=== PATIENT | female | born 1960 | race Caucasian/White ===

== ENCOUNTER 2017-12-20 00:44 | Emergency (ER) | payer MEDICARE, MEDICAID ==
[~2017-12-20] VITALS: Ht 165.1 cm; Wt 56.7 kg
[2017-12-20 00:57] VITALS: BP 97/58
== END 2017-12-20 01:18 | disposition home or self-care (01) ==
LOC: ER 00:46
DX: F41.9 Anxiety disorder, unspecified (principal); G89.4 Chronic pain syndrome; Z76.5 Malingerer [conscious simulation]; Z88.8 Allergy status to other drugs, medicaments and biological substances
CPT/HCPCS: 99284; A4606; Z7610

== ENCOUNTER 2017-12-26 23:27 | Emergency (ER) | payer MEDICARE, MEDICAID ==
[~2017-12-26] VITALS: Ht 165.1 cm; Wt 52.2 kg
[2017-12-26 23:35] VITALS: BP 134/78
--- NOTE | 2017-12-26 23:44 | NUR ---
PT WAS DISCHARGED BY MD SHEARER AND PT LEFT WITHOUT PAPERWORK
== END 2017-12-26 23:47 | disposition home or self-care (01) ==
LOC: ER 23:29
DX: Z76.5 Malingerer [conscious simulation] (principal); F19.129 Other psychoactive substance abuse with intoxication, unspecified; F41.9 Anxiety disorder, unspecified; G89.4 Chronic pain syndrome; Z88.8 Allergy status to other drugs, medicaments and biological substances
CPT/HCPCS: A4606; Z7610

== ENCOUNTER 2020-05-01 23:50 | Emergency (ER) | payer MEDICARE, OTHER ==
[~2020-05-01] VITALS: Ht 165.1 cm; Wt 62.6 kg
[2020-05-01 23:54] VITALS: BP 101/54
[2020-05-02] MEDS ORDERED: KETOROLAC TROMETHAMINE INJ 30 MG/ML VIAL ONE (00:01)
[2020-05-02] MEDS: KETOROLAC TROMETHAMINE INJ 60 MG/2 ML VIAL IM ONE ×2 (00:02→00:08)
[2020-05-02] MEDS ORDERED: oxyCODONE/APAP (5/325 MG) 1 UDTAB TABLET ONE (00:05)
[2020-05-02] MEDS ORDERED: oxyCODONE/APAP (5/325 MG) 1 UDTAB TABLET PO ONE (00:30)
== END 2020-05-02 00:10 | disposition home or self-care (01) ==
LOC: ER 23:50
DX: K02.9 Dental caries, unspecified (principal); K08.89 Other specified disorders of teeth and supporting structures; F41.9 Anxiety disorder, unspecified; G89.4 Chronic pain syndrome; Z88.8 Allergy status to other drugs, medicaments and biological substances
CPT/HCPCS: J1885

== ENCOUNTER 2020-05-02 10:37 | Emergency (ER) | payer MEDICARE, OTHER ==
[~2020-05-02] VITALS: Ht 165.1 cm; Wt 62.6 kg
[2020-05-02 10:43] VITALS: BP 113/62
[2020-05-02] MEDS ORDERED: HYDROCODONE/APAP 5/325MG TABLET ONE (10:58)
[2020-05-02] MEDS: HYDROCODONE/APAP 5/325MG TABLET PO ONE (11:20)
--- NOTE | 2020-05-02 11:24 | NUR ---
Patient given written and verbal discharge instructions. Patient verbalizes understanding of instructions. Patient is ambulatory with steady gait. Refuses offer of alf placement. Patient given list of available shelters in surrounding area. Patient in proper clothing upon discharge. name band removed. All belongings with the patient.
== END 2020-05-02 11:33 | disposition home or self-care (01) ==
LOC: ER 10:43
DX: K08.89 Other specified disorders of teeth and supporting structures (principal); Z76.5 Malingerer [conscious simulation]; F41.9 Anxiety disorder, unspecified; G89.4 Chronic pain syndrome; Z88.8 Allergy status to other drugs, medicaments and biological substances; Z60.2 Problems related to living alone; Z59.0 Homelessness

== ENCOUNTER 2020-05-03 04:48 | Emergency (ER) | payer MEDICARE, OTHER ==
[~2020-05-03] VITALS: Ht 165.1 cm; Wt 62.6 kg
[2020-05-03 04:51] VITALS: BP 110/90
--- NOTE | 2020-05-03 05:00 | NUR ---
Patient eloped from facility. ER MD notified.
--- NOTE | 2020-05-03 06:01 | NUR ---
PT CAME BACK AND REQUESTING TO BE SEEN BY ER MD. PT AMBULATORY TO ER BED 7. AWAITING ER MD MAHMOOD.
[2020-05-03] MEDS ORDERED: oxyCODONE/APAP (5/325 MG) 1 UDTAB TABLET PO ONE (07:00)
[2020-05-03] MEDS ORDERED: oxyCODONE/APAP (5/325 MG) 1 UDTAB TABLET ONE (07:02)
[2020-05-03] MEDS ORDERED: CEFTRIAXONE 1 G VIAL ONE (08:20)
[2020-05-03] MEDS ORDERED: LIDOCAINE /MPF 1% VIAL 5 ML VIAL ONE (08:20)
[2020-05-03] MEDS ORDERED: AZITHROMYCIN 250 MG TABLET ONE (08:21)
[2020-05-03] MEDS ORDERED: CEFTRIAXONE 1GM BAG (ER ONLY) 1 GM/50 ML PIGGYBACK IV ONE (08:30)
[2020-05-03] MEDS ORDERED: AZITHROMYCIN 250 MG TABLET PO ONE (08:30)
--- NOTE | 2020-05-03 08:40 | NUR ---
Patient discharged to home in stable condition. Written and verbal after care instructions given. Patient verbalizes understanding of instruction.
== END 2020-05-03 08:40 | disposition home or self-care (01) ==
LOC: ER 04:50
DX: K02.9 Dental caries, unspecified (principal); F41.9 Anxiety disorder, unspecified; G89.4 Chronic pain syndrome; Z88.8 Allergy status to other drugs, medicaments and biological substances; Z60.2 Problems related to living alone; Z59.0 Homelessness
CPT/HCPCS: 96372; 99283; A6403; J0696; J3490

== ENCOUNTER 2020-05-05 10:33 | Inpatient (IN) | payer MEDICARE, OTHER ==
[~2020-05-05] VITALS: Ht 165.1 cm; Wt 60.3 kg
--- NOTE | 2020-05-05 10:41 | NUR ---
carlito, "i feel sick in the inside whenever i am around with my boyfriend". On room air, breathing evenly and unlabored. connected to the monitor and pulse ox. kept comfortable, will continue to monitor accordingly.
--- NOTE | 2020-05-05 10:50 | NUR ---
er phleb at bedside for blood draw.
[2020-05-05 11:07] LABS: BASOPHILS % (AUTO) 0.7 % (0.0-2.0); EOSINOPHILS % (AUTO) 0.2 % (0.0-6.0); HEMATOCRIT 32 % (33-45); HEMOGLOBIN 10.6 g/dL (11.5-14.8); LYMPHOCYTES # (AUTO) 1.9 /CMM (0.8-4.8); LYMPHOCYTES % (AUTO) 42.5 % (20.0-44.0); MEAN CORPUSCULAR HGB CONC 33 g/dl (31.0-36.0); MEAN CORPUSCULAR VOLUME 81 fL (82-100); MONOCYTES # (AUTO) 0.4 /CMM (0.1-1.30); MONOCYTES % (AUTO) 9.2 % (2.0-12.0); NEUTROPHILS # (AUTO) 2.1 /CMM (1.8-8.9); NEUTROPHILS % (AUTO) 47.4 % (43.0-81.0); PLATELET COUNT (AUTO) 376 /CMM (150-450); RED BLOOD CELL COUNT(AUTO) 3.95 MIL/uL (4.0-5.2); WHITE BLOOD COUNT (AUTO) 4.4 K/uL (4.3-11.0)
[2020-05-05 11:22] LABS: ALANINE AMINOTRANSFERASE 23 U/L (12-78); ALBUMIN 2.9 g/dL (3.4-5.0); ALCOHOL, BLOOD < 3 mg/dL (0-0); ALKALINE PHOSPHATASE 89 U/L (46-116); ASPARTATE AMINOTRANSFERASE 23 U/L (15-37); BILIRUBIN,TOTAL 0.2 mg/dL (0.2-1.0); CALCIUM, SERUM 7.9 mg/dL (8.5-10.1); CARBON DIOXIDE 32 mmol/L (21-32); CHLORIDE 97 mmol/L (98-107); CREATININE 1.1 mg/dL (0.6-1.3); GLUCOSE 142 mg/dL (74-106); SALICYLATE 11.1 mg/dL (2.8-20.0); SODIUM SERUM 138 mmol/L (136-145); TOTAL PROTEIN, SERUM 6.9 g/dL (6.4-8.2); UREA NITROGEN, BLOOD 44 mg/dL (7-18)
[2020-05-05 11:25] LABS: ACETAMINOPHEN < 10 ug/ml (10-30); POTASSIUM 1.5 mmol/L (3.5-5.1)
[2020-05-05] MEDS ORDERED: Magnesium 1GM/D5W 100ML PREMIX PIGGYBACK IV ONE (11:30)
[2020-05-05] MEDS ORDERED: Magnesium 1GM/D5W 100ML PREMIX 200 ML IV ONE (11:40)
[2020-05-05] MEDS ORDERED: POTASSIUM CL. PREMIX PERIPHER. 200 ML ONE (11:40)
[2020-05-05] MEDS: POTASSIUM CL. PREMIX PERIPHER. 50 ML IV SCH ×4 (11:45→15:53)
--- NOTE | 2020-05-05 12:13 | NUR ---
covid 19 swab collected and sent to lab
--- NOTE | 2020-05-05 13:16 | NUR ---
BED 114-1
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
--- NOTE | 2020-05-05 13:58 | NUR ---
wheeled patient via gurney accompanied by RN and emt in no distress. RN at bedside to assume care.
[2020-05-05 14:00] VITALS: BP_SYST 117; BP_DIAS 57; BP_DIAS 72
[2020-05-05 14:17] LABS: APPEARANCE,URINE CLEAR (CLEAR); BILIRUBIN,URINE NEGATIVE (NEGATIVE); BLOOD, URINE SMALL Ery/uL (NEGATIVE); COLOR,URINE YELLOW (YELLOW); KETONES,URINE NEGATIVE (NEGATIVE); LEUKOCYTE ESTERASE ,URINE NEGATIVE (NEGATIVE); NITRITE, URINE NEGATIVE (NEGATIVE); PROTEIN,URINE 30 mg/dl (NEGATIVE); UGLUCOSE NEGATIVE (NEGATIVE); UROBILINOGEN,URINE 0.2 EU/dL (0.2)
[2020-05-05 14:39] LABS: BACTERIA,URINE 1+ /HPF (None Seen)
[2020-05-05] MEDS ORDERED: ZOLPIDEM TARTRATE 5 MG TABLET PO PRN (15:00)
[2020-05-05] MEDS ORDERED: MAG HYDROX/AL HYDROX/SIMETH 30 ML UDC PO PRN (15:00)
[2020-05-05] MEDS ORDERED: Z GUARD REMEDY 2 OZ OINT TP PRN (15:00)
[2020-05-05] MEDS ORDERED: ACETAMINOPHEN 325 MG TABLET PO PRN (15:00)
[2020-05-05] MEDS ORDERED: ONDANSETRON HCL/PF 4 MG/2 ML VIAL IVP PRN (15:00)
[2020-05-05] MEDS ORDERED: HYDROCODONE/APAP 5/325MG TABLET PO PRN (15:00)
[2020-05-05] MEDS ORDERED: MAGNESIUM HYDROXIDE 30 ML UDC PO PRN (15:00)
[2020-05-05 16:00] VITALS: BP 107/56
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
--- NOTE | 2020-05-05 16:14 | NUR ---
11:30am This SW called [facility] and left a voicemail asking to speak with the case management coordinator Juan R.
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
--- NOTE | 2020-05-05 16:15 | NUR ---
12:15pm This SW retuned to speak with the patient. Patient informed this SW that her case therapist was Juan R/Albert, not Dejah. Patient also reports that she just left [facility]. This SW to call [facility] x [phone] and ask to speak with Motors Assembler Albert.
--- NOTE | 2020-05-05 16:15 | NUR ---
There is no Forming Roll Operator at [facility] by the name of Joel. Pond is the only case management coordinator at this facility.
--- NOTE | 2020-05-05 16:31 | NUR ---
PATIENT IS COMPLAINING OF PAIN. OFFERED NORCO. PATIENT UPSET WANTS OXYCODONE BEC [facility] MAKES HER STOMACH UPSET. INFORMED DR. BLANCO. PER , CAN CONT HOME MEDS.
[2020-05-05] MEDS ORDERED: NALOXONE HCL 0.4 MG/ML AMPUL IV PRN (17:00)
[2020-05-05] MEDS ORDERED: ALPRAZOLAM 1 MG TABLET PO ONE (17:00)
[2020-05-05] MEDS: oxyCODONE HCL SR 10MG TAB.SR.12H PO SCH ×2 (17:07→21:25)
--- NOTE | 2020-05-05 17:19 | NUR ---
ASSESSMENT MANAGER NOTES PT LEFT HER ROOM. FORGOT TO BRING IV PUMP. IV LINE WAS REMOVED. CLEANSED SITE, PUT PRESSURE. NO SIGNS OF UNCONTROLLED BLEEDING NOTED. ASSISTED BACK TO ROOM.
[2020-05-05 17:38] VITALS: BP 107/56
--- NOTE | 2020-05-05 19:10 | NUR ---
RN OPENING NOTE RECEIVED PATIENT IN BED RESTING ALERT ORIENTED X4 VERBALLY RESPONSIVE NO SOB NOT ACUTE DISTRESS NOTED,ABLE TO MAKE NEEDS KNOWN,FULL CODE ON MONITORING MED SURG,ON ROOM AIR 97% AMBULATORY WITH ASSIST,IV SITE IS ON LEFT HAND G#22 INTACT PATENT,CONTINENT TO BOWEL/BLADDER,BED IN LOW POSITION AND LOCKED,IMPLEMENT SAFETY MEASURE, BED ALARM IS ON,CALL LIGHT WITHIN REACH,CONTINUE TO MONITOR,
--- NOTE | 2020-05-05 19:14 | NUR ---
RN CLOSING NOTES PT AWAKE, A/O X 4 WITH CONFUSION AND PARANOIA. TRANSFER TO MED-SURG. NO SIGNS OF DISTRESS. ON RA TOLERATING WELL AT 98% SATURATION. NO SOB OR ACUTE RESPIRATORY DISTRESS NOTED AT THIS TIME. NO COMPLAINS OF PAIN. POTASSIUM REPLACED. NO ADVERSE REACTION TO MEDICATION. KEPT CLEAN AND COMFORTABLE. ALL NEEDS ATTENDED. CALL LIGHT WITHIN REACH. BED LOCKED AND AT LOWEST POSITION. WILL ENDORSE TO ONCOMING SHIFT FOR JOSEFA
[2020-05-05 20:00] VITALS: BP 102/56
--- NOTE | 2020-05-05 23:00 | NUR ---
RN NOTE PATIENT ASKING FOR XANAX EXPLAINED HER THERE IS NO ORDER FOR XANAX,OFFERED HER AMBIEN SHE CHANGED MIND AND ASKING ONLY FOR XANAX SPOKE WITH DR PAULINO HE ORDERED XANAX 1 MG PO ONE TIME ONLY NOTED AND CARRIED OU.
[2020-05-06] VITALS: BP 102/56
[2020-05-06] MEDS ORDERED: ALPRAZOLAM 1 MG TABLET PO ONE (00:30)
[2020-05-06 06:23] LABS: BASOPHILS % (AUTO) 0.4 % (0.0-2.0); EOSINOPHILS % (AUTO) 1.2 % (0.0-6.0); HEMATOCRIT 30 % (33-45); LYMPHOCYTES # (AUTO) 3.6 /CMM (0.8-4.8); LYMPHOCYTES % (AUTO) 54.5 % (20.0-44.0); MEAN CORPUSCULAR HGB CONC 33 g/dl (31.0-36.0); MEAN CORPUSCULAR VOLUME 81 fL (82-100); MONOCYTES # (AUTO) 0.5 /CMM (0.1-1.30); MONOCYTES % (AUTO) 7.5 % (2.0-12.0); NEUTROPHILS # (AUTO) 2.4 /CMM (1.8-8.9); NEUTROPHILS % (AUTO) 36.4 % (43.0-81.0); PLATELET COUNT (AUTO) 335 /CMM (150-450); RED BLOOD CELL COUNT(AUTO) 3.69 MIL/uL (4.0-5.2); WHITE BLOOD COUNT (AUTO) 6.6 K/uL (4.3-11.0)
[2020-05-06 07:03] LABS: THYROID STIMULATING HORMONE 1.571 uIU/mL (0.358-3.74)
[2020-05-06 07:04] LABS: CALCIUM, SERUM 8.2 mg/dL (8.5-10.1); MAGNESIUM 2.5 mg/dL (1.8-2.4); PHOSPHORUS 2.7 mg/dL (2.5-4.9)
--- NOTE | 2020-05-06 07:13 | NUR ---
RN CLOSING NOTE, PATIENT REMAINS ON ALERT ORIENTED VERBALLY RESPONSIVE NO SOB NOT ACUTE DISTRESS NOTED,FULL CODE,ON MED SURG MONITORING,ON ROOM AIR, 100%,IV IS ON LEFT HAND INTACT,PATIENT AMBULATORY WITH ASSIST,FALL RISK,BED ALARM IS ON AND LOW POSITION, ALL DUE MEDS GIVEN MD ORDERED,KEPT CLEAN AND DRY ALL THE TIME,KEPT CALL LIGHT WITHIN REACH,ENDORSE NEXT COMING FOR CONTINUATION OF CARE.
--- NOTE | 2020-05-06 07:59 | NUR ---
PATHOLOGIST ASSISTANT - PATIENT BP 86/47. PATIENT ABLE TO FOLLOW COMMANDS AND EATING. CHARGE NURSE NOTIFIED . WILL RECHECK VITALS
[2020-05-06 08:00] VITALS: BP 86/46
[2020-05-06 08:29] LABS: POTASSIUM 1.8 mmol/L (3.5-5.1)
--- NOTE | 2020-05-06 08:50 | NUR ---
radio television announcer note received patient in bed ,sleeping but slowly arousal, bp at this time 86/46 saturation 98% on ra no sob noted at this time , lt hand hl intact and flushed well,bed in lowest and locked position , awake by automotive quality manager able to eat breakfast, ate 100% , call light within reach , will monitor
[2020-05-06] MEDS: oxyCODONE HCL SR 10MG TAB.SR.12H PO SCH ×4 (09:00→20:30)
--- NOTE | 2020-05-06 09:00 | NUR ---
telecasting technician note k now 1.[address] meza with order 60 mEq kcl iv, will f\u
[2020-05-06] MEDS: POTASSIUM CL. PREMIX PERIPHER. 50 ML IV SCH ×2 (09:18→10:02)
--- NOTE | 2020-05-06 09:42 | NUR ---
telecom manager note will hold oxycodone for now bp 86/46 still drowsy
--- NOTE | 2020-05-06 09:50 | NUR ---
ms rn note unable to administered iv kcl very painful for per patient statement per dr susana watts to add lidocaine in iv, order carried out
[2020-05-06 10:00] VITALS: BP 86/46
[2020-05-06] MEDS: Potassium Chloride 40 MEQ in IV NS 0.9% 1,000 ML IV SCH ×2 (10:16→20:14)
[2020-05-06] MEDS ORDERED: MISCELLANEOUS MED 1 EA EA XX ONE (11:00)
[2020-05-06] MEDS: Potassium Chloride 10 MEQ, LIDOCAINE HCL/PF 1% 1 ML in IV D5W 50 ML IV SCH ×5 (11:13→16:11)
[2020-05-06 11:21] LABS: CALCIUM, SERUM 7.7 mg/dL (8.5-10.1); CREATININE 1.2 mg/dL (0.6-1.3)
[2020-05-06 11:23] LABS: POTASSIUM 1.7 mmol/L (3.5-5.1)
--- NOTE | 2020-05-06 11:29 | NUR ---
public safety telecommunicator note called again to dr meza about bp 80/40 will f\u Addendum: 05/06/20 at 1138 by KIMBERLY PATE RN per dr susana watts mid line insertion
--- NOTE | 2020-05-06 11:53 | NUR ---
radiotelegraphist note still refusing kcl with lidocaine iv called to dr susana alvarez awaite for call back Addendum: 05/06/20 at 1155 by KIMBERLY PATE RN refusing pt ,refusing ekg for now .explained of importance still refusing will try again latter on
[2020-05-06 12:00] VITALS: BP 83/52
--- NOTE | 2020-05-06 12:12 | NUR ---
INSPECTOR RAG SORTING NOTE DR AGUILAR AT BEDSIDE NOTIFIED THAT BP 83/45 NO BOLUS AT THIS TIME ALSO NOTIFIED THAT REFUSED KCL WITH LIDOCAINE IN IT SPOKE WITH PATIENT AND EXPLAINED TO HAVE KCL IV PATIENT STATED THAT WILL TRY
--- NOTE | 2020-05-06 12:30 | NUR ---
tms rn note per dr meza ok to give xanax and per dr meza hold oxycodone for now if bp is low but not d\c because she has chronic body pain will f\u
[2020-05-06] MEDS: ALPRAZOLAM 1 MG TABLET PO SCH ×2 (13:13→20:31)
--- NOTE | 2020-05-06 13:16 | NUR ---
MARTINA RYDER NOTE BP95/5 OK TO GIVE XANAX 1CMG PER ORDER DR AGUILAR Addendum: 05/06/20 at 1919 by KIMBERLY PTAE RN
--- NOTE | 2020-05-06 14:00 | NUR ---
ms rn note ua collected as ordered
--- NOTE | 2020-05-06 14:12 | NUR ---
sona walker do now by rt as ordered Addendum: 05/06/20 at 1423 by KIMBERLY PATE RN pt done by pt able to sit at edge of bed and stand up
[2020-05-06 16:00] VITALS: BP 99/52
--- NOTE | 2020-05-06 16:59 | NUR ---
ms rn note mid line inserted as ordered on lt upper arm
--- NOTE | 2020-05-06 19:10 | NUR ---
RN OPENING NOTE RECEIVED PATIENT IN BED RESTING ALERT ORIENTED X2-3 VERBALLY RESPONSIVE FULL CODE ON MED SURG MONITORING,ON ROOM AIR 100% NO SOB NOT ACUTE DISTRESS NOTED,IV SITE IS ON LEFT HAND AND LEFT UPPER ARM MIDLINE INTACT PATENT IV POTASSIUM 40MEQ RUNNING 100 CC/HR ,AMBULATORY WITH ASSIST RISK FOR FALL,BED LOCKED IN LOW POSITION,BED ALARM IS ON,IMPLEMENT SAFETY MEASURE,SIDE RAIL X3 UP,CALL LIGHT WITHIN REACH,CONTINUE TO MONITOR.
--- NOTE | 2020-05-06 20:00 | NUR ---
RN NOTE PATIENT IS ON TELE MONITORING NOW.
[2020-05-06 20:01] LABS: CHLORIDE,URINE RANDOM 34 mmol/L (55-125); POTASSIUM RNDM,URINE 12 mmol/L (25-125); URINE SODIUM, RANDOM 5 mmol/l (40-220)
[2020-05-06 20:16] LABS: OSMOLALITY,URINE 288 mOS/kg (340-1090)
[2020-05-06 22:00] VITALS: BP 115/52
[2020-05-07 04:00] VITALS: BP 106/50
[2020-05-07] MEDS: Potassium Chloride 40 MEQ in IV NS 0.9% 1,000 ML IV SCH ×2 (06:25→17:00)
[2020-05-07 06:49] LABS: BASOPHILS % (AUTO) 0.6 % (0.0-2.0); EOSINOPHILS % (AUTO) 2.7 % (0.0-6.0); HEMATOCRIT 28 % (33-45); HEMOGLOBIN 9.2 g/dL (11.5-14.8); MEAN CORPUSCULAR HGB CONC 33 g/dl (31.0-36.0); MEAN CORPUSCULAR VOLUME 82 fL (82-100); MONOCYTES # (AUTO) 0.5 /CMM (0.1-1.30); MONOCYTES % (AUTO) 6.4 % (2.0-12.0); NEUTROPHILS # (AUTO) 4.2 /CMM (1.8-8.9); NEUTROPHILS % (AUTO) 52.3 % (43.0-81.0); PLATELET COUNT (AUTO) 318 /CMM (150-450); RED BLOOD CELL COUNT(AUTO) 3.36 MIL/uL (4.0-5.2); WHITE BLOOD COUNT (AUTO) 7.9 K/uL (4.3-11.0)
--- NOTE | 2020-05-07 06:55 | NUR ---
RN CLOSING NOTE PATIENT REMAINS ON ALERT ORIENTED X2-3 VERBALLY RESPONSIVE NO SOB NOT ACUTE DISTRESS NOTED,FULL CODE ON TELE MONITORING,ON ROOM AIR 98% IV SITE IS ON LEFT UPPER ARM MID LINE,LEFT HAND INTACT PATENT,IV POTASSIUM CHLORIDE 40MEG IN NORMAL SALINE RUNNING 100 CC/HR.ALL DUE MEDS GIVEN MD ORDERED,KEPT CLEAN AND DRY ALL THE TIME,BED IN LOW POSITON AND LOCKED,BED ALARM IS ON,KEPT CALL LIGHT WITIN REACH,ALL NEEDS MET.ENDORSE NEXT COMING SHIFT FOR CONTINUATION OF CARE.
[2020-05-07 07:13] LABS: CREATININE 0.7 mg/dL (0.6-1.3); MAGNESIUM 2.1 mg/dL (1.8-2.4); PHOSPHORUS 2.5 mg/dL (2.5-4.9)
[2020-05-07 07:23] LABS: POTASSIUM 2.7 mmol/L (3.5-5.1)
[2020-05-07 08:00] VITALS: BP 113/53
[2020-05-07] MEDS: oxyCODONE HCL SR 10MG TAB.SR.12H PO SCH ×4 (08:06→21:00)
[2020-05-07] MEDS: ALPRAZOLAM 1 MG TABLET PO SCH (08:06)
[2020-05-07] MEDS ORDERED: POTASSIUM CL. PREMIX PERIPHER. 50 ML IV SCH (10:30)
[2020-05-07] MEDS: Potassium Chloride 10 MEQ, LIDOCAINE HCL/PF 1% 1 ML in IV D5W 50 ML IV SCH ×6 (11:13→16:18)
[2020-05-07 12:00] VITALS: BP 101/40
[2020-05-07] MEDS ORDERED: QUETIAPINE FUMARATE 25 MG TABLET PO PRN (14:00)
--- NOTE | 2020-05-07 15:00 | NUR ---
AXLE BEARING POLISHER/MANUEL NOTE RECEIVED PT IN BED. AWAKE, ALERT AND AGITATED. PT IS EXTREMELY ANXIOUS. RECEIVED REPORT AT BEDSIDE FROM NURSE ROSS. WILL CONTINUE PLAN OF CARE AND MONITOR AND ASSESS PT.
--- NOTE | 2020-05-07 15:15 | NUR ---
RN NOTES ENDORSED PT TO BRITNI JEAN, PT IS STABLE CONDITION.
--- NOTE | 2020-05-07 15:19 | NUR ---
This SW spoke with wind energy project manager Amy following up on psych consult. Per wind energy project manager Amy patient has been seen. This SW awaiting note to follow up with the patient.
[2020-05-07 16:00] VITALS: BP 136/71
--- NOTE | 2020-05-07 16:03 | NUR ---
PATIENT ANXIOUS WALKING IN HALLWAY DEMADING HER XANA,REFUSED TO TAKE PO SEROQUEL.DR. PHIPPS NOTIFIED AND OK TO CHANGE SEROQUEL TO Q 8 HOURS.
[2020-05-07] MEDS: ALPRAZOLAM 1 MG TABLET PO PRN (16:11)
--- NOTE | 2020-05-07 18:32 | NUR ---
INDUSTRIAL/ORGANIZATIONAL PSYCHOLOGIST/MANUEL CLOSING NOTE PT IS CURRENTLY CALM AND IN BED, AWAKE, ALERT AND ORIENTED X2/3. PT NOTED WITH SOME CONFUSION ESPECIALLY REGARDING IF SHE HAS HAD HER MEDICATIONS OR NOT (GENTLE REMINDER IS NECESSARY AT TIMES). PT IS ABLE TO AMBULATE TO THE RESTROOM WITH MINIMAL ASSISTANCE WITH THE IV POLE. PT'S SKIN IS INTACT BUT FRAGILE AND THIN. PT IS CURRENTLY ON A CARDIAC DIET AND ABLE TO EAT WITHOUT ASSISTANCE.PT IS ON ROOM AIR SATURATING AT 99% AT THIS TIME. PT HAS A LEFT HAND AND A LEFT UPPER ARM MIDLINE THAT IS INTACT, PATENT AND FLUSHING WELL. NO INFILTRATION OR SIGNS OR SYMPTOMS OF INFECTION NOTED. NO DISCOMFORT NOTED FROM PT. AT THIS TIME PT DENIES PAIN. PT IS IN STABLE CONDITION WITH NO ACUTE DISTRESS OR SOB NOTED. HOB ELEVATED AT ALL TIMES. ALL SAFETY PRECAUTIONS TAKEN AND IMPLEMENTED AT ALL TIMES.ALL NEEDS MET WITH HELP OF JB BEE. PT DOES NOT APPEAR TO BE ANXIOUS AT THIS MOMENT. CALL LIGHT WITHIN REACH AND FUNCTIONING. BED LOCKED AND IN LOWEST POSITION. ALL SAFETY MEASURES AND PRECAUTIONS TAKEN DURING SHIFT. WILL ENDORSE TO NEXT SHIFT NURSE FOR JOSEFA.
--- NOTE | 2020-05-07 19:07 | NUR ---
RN OPENING NOTE RECEIVED PT IN BED RESTING. ALERT AND ORIENTED X 1, IS SOMEWHAT DIFFICULT TO AROUSE BUT COOPERATIVE AND RESPONSIVE AFTER CONTINUOUS TACTILE STIMULATION. MED SURG MONITORING FULL CODE NOTED. NO SIGNS OF SHORTNESS OF BREATH OR RESPIRATORY DISTRESS NOTED AT THIS TIME. SKIN IS INTACT, FRAGILE/THIN. PT HAS IV SITE; LEFT HAND #22 SALINE LOCKED PATENT AND FLUSHES WELL. LEFT UPPER ARM MIDLINE PRESENT INFUSING 100ML POTASSIUM CHLORIDE 40 MEQ IN NS 1000ML ORDERED PER MD. DIAGNOSIS SEVERE HYPOKALEMIA. NO SIGNS OF INFILTRATION AT IV SITE NOTED. PT DENIES PAIN AT THIS TIME. BED IS LOCKED IN LOWEST POSITION. CALL LIGHT IS WITHIN EASY REACH. WILL CONTINUE TO MONITOR CLOSELY.
[2020-05-07 20:00] VITALS: BP_SYST 107; BP_SYST 114; BP_DIAS 49; BP_DIAS 64
--- NOTE | 2020-05-07 20:42 | NUR ---
NON ADMIN OXYCODONE DID NOT ADMINISTER SCHEDULED OXYCODONE DUE TO PT SLEEPING WITH DIFFICULTY AROUSING. CHARGE NURSE MADE AWARE. NO SHORTNESS OF BREATH OR RESPIRATORY DISTRESS AT THIS TIME. BREATHING IS EVEN AND UNLABORED. WILL CONTINUE TO MONITOR.
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
[2020-05-08] MEDS: Potassium Chloride 40 MEQ in IV NS 0.9% 1,000 ML IV SCH (02:48)
[2020-05-08] MEDS: ALPRAZOLAM 1 MG TABLET PO PRN ×2 (03:42→13:45)
[2020-05-08 04:00] VITALS: BP 113/55
[2020-05-08] MEDS ORDERED: oxyCODONE HCL SR 10MG TAB.SR.12H PO ONE (04:00)
[2020-05-08 06:18] LABS: BASOPHILS # (AUTO) 0.1 /CMM (0.0-0.2); BASOPHILS % (AUTO) 0.5 % (0.0-2.0); EOSINOPHILS % (AUTO) 1.8 % (0.0-6.0); HEMATOCRIT 30 % (33-45); HEMOGLOBIN 9.6 g/dL (11.5-14.8); LYMPHOCYTES # (AUTO) 2.8 /CMM (0.8-4.8); LYMPHOCYTES % (AUTO) 23.1 % (20.0-44.0); MEAN CORPUSCULAR HGB CONC 32 g/dl (31.0-36.0); MEAN CORPUSCULAR VOLUME 83 fL (82-100); MONOCYTES # (AUTO) 0.7 /CMM (0.1-1.30); MONOCYTES % (AUTO) 5.8 % (2.0-12.0); NEUTROPHILS # (AUTO) 8.3 /CMM (1.8-8.9); NEUTROPHILS % (AUTO) 68.8 % (43.0-81.0); PLATELET COUNT (AUTO) 374 /CMM (150-450); RED BLOOD CELL COUNT(AUTO) 3.57 MIL/uL (4.0-5.2); WHITE BLOOD COUNT (AUTO) 12.1 K/uL (4.3-11.0)
[2020-05-08 06:46] LABS: CREATININE 0.6 mg/dL (0.6-1.3); MAGNESIUM 1.8 mg/dL (1.8-2.4); PHOSPHORUS 1.7 mg/dL (2.5-4.9); POTASSIUM 3.7 mmol/L (3.5-5.1)
--- NOTE | 2020-05-08 07:22 | NUR ---
RN CLOSING NOTE PT IS RESTING, ASLEEP IN BED. ON ROOM AIR TOLERATING WELL. NO RESPIRATORY DISTRESS OR SHORTNESS OF BREATH NOTED. BREATHING IS EVEN AND UNLABORED AT THIS TIME. PT VOIDED ONCE WITH ASSISTANCE AND SLEPT WELL THROUGHOUT THE NIGHT. IV SITES PATENT AND FLUSHED. STILL INFUSING POTASSIUM CHLORIDE IN NS. NO SIGNS OF INFILTRATION. BED IS LOCKED IN LOWEST POSITION. ENDORSED TO ONCOMING NURSE FOR CONTINUATION OF CARE.
--- NOTE | 2020-05-08 07:39 | NUR ---
RN OPENING NOTES: RECEIVED PT IN BED SLEEPING. NO SIGNS OF RESPIRATORY DISTRESS, DIFFICULTY BREATHING, SOB, OR PAIN. PTS VITALS WNL, IV SITE PATENT FLUSHED WELL. PT ON RA TOLERATING WELL. SAFETY MEASURES MAINTAINED, CALL LIGHT WITHIN REACH WILL CONTINUE TO MONITOR.
--- NOTE | 2020-05-08 10:58 | NUR ---
Patient does not want to return to [facility] as patient stated she had already been there. SW to provide homeless resources to wire charger Soon for the patient.
[2020-05-08] MEDS ORDERED: QUET25TA PO (11:34)
[2020-05-08] MEDS ORDERED: oxyCODONE HCL SR 10MG PO (11:34)
[2020-05-08] MEDS ORDERED: ALPR1TAB7 PO (11:34)
[2020-05-08 12:00] VITALS: BP 113/55
[2020-05-08] MEDS: oxyCODONE HCL SR 10MG TAB.SR.12H PO SCH ×3 (12:26→17:10)
[2020-05-08] MEDS ORDERED: NEUTRA PHOS 1 POWD.PACKET PO ONE (13:30)
--- NOTE | 2020-05-08 18:39 | NUR ---
RN CLOSING NOTES: PATIENT IN BED NO ACUTE CHANGES DURING THE SHIFT, PT IS BEING DISCHARGED.
--- NOTE | 2020-05-08 19:53 | NUR ---
LAUNDRY CLERK NOTES PATIENT DISCHARGED HOME WITH BOYFRIENBALDEMAR Matthews . EXIT CARE ORGANIZED AND COMPLETED BY AM RN. DISCHARGE INSTRUCTIONS SIGNED BY PATIENT AND COPY PROVIDED. ALL BELONGINGS REVIEWED WITH PATIENT; HOME MEDS RETURNED IN SEALED BAG. MIDLINE ON LEFT UPPER ARM AND IV ON LEFT HAND REMOVED. ID BAND REMOVED. VITAL SIGNS WNL. [facility]
== END 2020-05-08 19:37 | disposition home or self-care (01) | DRG 640 ==
LOC: ER 10:37 → TELE1 13:17 → MEDSG1 17:45 → TELE1 05-07 02:08 → MEDSG1 05-07 13:41
PROVIDERS: ADMIT Student in an Organized Health Care Education/Training Program
PROC: 05HA33Z Insertion of Infusion Device into Left Brachial Vein, Percutaneous Approach (ICD-10-PCS; principal; 2020-05-06)
DX: E87.6 Hypokalemia (principal); N17.0 Acute kidney failure with tubular necrosis; E44.0 Moderate protein-calorie malnutrition; E88.09 Other disorders of plasma-protein metabolism, not elsewhere classified; G89.4 Chronic pain syndrome; D64.9 Anemia, unspecified; Z68.23 Body mass index [BMI] 23.0-23.9, adult; R11.2 Nausea with vomiting, unspecified; E87.1 Hypo-osmolality and hyponatremia; E86.1 Hypovolemia; F29 Unspecified psychosis not due to a substance or known physiological condition; F41.1 Generalized anxiety disorder; F19.10 Other psychoactive substance abuse, uncomplicated
CPT/HCPCS: 36410; 36415; 80048-TC; 80061-TC; 80076-TC; 80305; 81000-TC; 82436-TC; 83735-TC; 83935-TC; 84100-TC; 84133-TC; 84300-TC; 84443-TC; 85025-TC; 87081-TC; 97116-TC; 97530-TC; C9803-CS; G0378; G0480; J3475; J3480; J3490; J7040; J7050; J7060

== ENCOUNTER 2020-05-09 11:21 | Emergency (ER) | payer MEDICARE, OTHER ==
[~2020-05-09] VITALS: Ht 165.1 cm; Wt 62.6 kg
[~2020-05-09 11:21] MED LIST: ALPR1TAB7 PO; QUET25TA PO; oxyCODONE HCL SR 10MG PO
--- NOTE | 2020-05-09 11:36 | NUR ---
[facility]. AAOX4.NOT IN RESP DISTRESS. AMBULATORY. CAME IN FOR NOT FEELING WELL. WHEN ASKED TO TO ELABORATE MORE, SHE STATED THAT SHE JUST WANT TO MAKE SURE THAT EVERYTHING IS OK. SHE WAS JUST DISCHARGED YESTERDAY FROM THE HOSPITAL AND MEDICALLY CLEARED. PT REQUESTS TO SPEAK WITH A SENIOR PROPERTY MANAGER. WAS AT THE BEDSIDE FOR EVAL. SENIOR PROPERTY MANAGER CALLED.
--- NOTE | 2020-05-09 11:59 | NUR ---
ENVIRONMENTAL ENGINEER AT BEDSIDE.
--- NOTE | 2020-05-09 12:17 | NUR ---
HOMELESS WAIVER SIGNED BY THE PATIENT. OBTAINED BY THE SOCOIAL WORKER
--- NOTE | 2020-05-09 12:18 | NUR ---
Patient discharged to home in stable condition. Written and verbal after care instructions given. Patient verbalizes understanding of instruction. Pt ambulatory with a steady gait
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
--- NOTE | 2020-05-09 12:34 | NUR ---
SW spoke with Business And Services Instructor Juan R who informed me that they have explained to the patient that they cannot accept her without referral . Business And Services Instructor Juan R stating that they have spoken to this patient many times and that they are in need of a referral. Business And Services Instructor Juan R informed me about different levels of care for patient to be accepted which are the following: Tier 1: Recovering from chronic medical condition; minimal supervision; able to perform ADLs Tier 2: Recovering from an acute medical condition (such as a wound, amputation, pressure sore); uses an assistive mobile device (such as wheelchair, FWW); minimal 1-person assist with ADLs; minimal Home Health for wound dressing changes Tier 3: Recovering from a chronic or acute medical condition & requires significant assistance with ADLs; Medical conditions requiring Home Health visits or frequent staff observation (IV antibiotics, O2, Incontinence, catheter care, colostomy care, dialysis) Tier 4: In hospice. Patient does not qualify for a bed at this location. This SW to provide homeless resource packet including the following: Substance Abuse resources provided included: [facility] Substance Abuse Self-Helpline ([facility]) ; [facility]LP [address] [facility] [place] 916t01 ; [facility] [address] [facility] [address] ; [facility] Rehabilitation Program [address] [facility] [address] ; [facility] 400 [facility] [phone] ; [facility] 4940 [facility] [address] ; [facility] 909 [facility] [address] ; [facility] Substance Abuse Helpline([facility])-[facility] ; [facility] ; [facility]; [facility] [place]; [facility] [place]; I-ADARP Inter Agency Drug Abuse Recovery Steve Dela Cruz; [facility]; [facility] [place]; [facility] [place]; [facility] [place]; Alcoholics Anonymous -SFV; Xi-Qquc-Uhzqgup ; Marijuana Anonymous -SFV; Narcotics Anonymous www.na.org. Year-round shelters : [place] [address] [address] ; [facility] [place] [address] [place] [address]; [facility] Zuafsei6910 [facility]. [facility] [address] Hygiene: [facility] Hospital[facility]: [address] [facility]. [place] ; [facility] [address] [facility] ; [facility] 6905 [facility] . Food Resources: [place] [facility] at [facility]- 5700 [facility] [place]; Meet Each Need wit Dignity ([facility]) [address] [facility]; [facility] Food Pantry [address] [facility]; [facility] 2574 [facility]. Mental Health resources provided: [facility] [address] [place] [address] ; [facility] [place] [address] [facility] [address], [place] [address] ; [place] [facility], [facility] Mental [facility]gent [facility] Center [address] [place] [address] ; [facility] [address] [place], [place] [phone]
--- NOTE | 2020-05-09 13:06 | NUR ---
ER Admitting called a taxi for the patient. Patient wanting to go speak to [facility] [address] [address] [facility], [place] [address]. Patient paying for taxi on her own accord. provided resources Substance Abuse resources provided included: [facility] Substance Abuse Self-Helpline ([facility]) ; [facility]LP [address] [facility]. [place] 916t01 ; [facility] [place] [address] [facility] [address] ; [facility] Rehabilitation [facility] [address] [facility] [phone] ; [facility] 400 [facility] [phone] ; [facility] 4940 Steve Dela Cruz [facility] [phone] ; Lisa [facility] 909 [facility] [phone] ; [facility] Substance Abuse Helpline([facility])-[facility] ; [facility] ; [facility] [place]; [facility] [place]; I-ADARP Inter Agency Drug Abuse Recovery Steve Dela [place]; [place] [facility] [place]; [facility] [place]; [facility] [place]; [facility], [facility]. [place]; Alcoholics Anonymous -SFV; Re-Ahpf-Rcgrvdz ; Marijuana Anonymous -SFV; Narcotics Anonymous www.na.org. Year-round shelters : [facility] [address] [place] [address] ; [facility] [place] 545 [place] [address]; [place] [facility] [address] [facility] [id number] Hygiene: [facility]: [address] [place] ; [facility] Center[facility] [address] [facility] Resmartin [facility] ; [facility] 6901 Don Edda [place] . Food Resources: [place] [facility] at [facility]- [address] [place]; Meet Each Need wit Dignity ([facility]) [address] [facility] Center[facility]eg[facility] [place]; [facility] Food [facility] 4350 [facility]; [facility] 8543 High[facility] Hospitaljenni [place] Mental Health resources provided: [facility] [address] [place] [address] ; [facility] [place], Inc[facility] [address] [facility] [address], [place] [address] ; [facility] Matthews [facility] Mental Health Urgent Care Center [address] [place] [address] ; [facility] [address] [place], [place] [phone]
[2020-05-09 13:12] VITALS: BP 131/72
== END 2020-05-09 12:18 | disposition home or self-care (01) ==
LOC: ER 11:22
DX: Z00.00 Encounter for general adult medical examination without abnormal findings (principal); Z59.0 Homelessness; F41.9 Anxiety disorder, unspecified; G89.4 Chronic pain syndrome; Z88.8 Allergy status to other drugs, medicaments and biological substances; Z79.899 Other long term (current) drug therapy

== ENCOUNTER 2021-07-16 00:11 | Inpatient (IN) | payer MEDICARE ==
[~2021-07-16] VITALS: Ht 167.6 cm; Wt 68.0 kg
[2021-07-16] MEDS ORDERED: MAGNESIUM HYDROXIDE 30 ML UDC PO PRN (01:00)
[2021-07-16] MEDS ORDERED: BLOOD SUGAR DIAGNOSTIC 1 EACH STRIP IN ONE (01:00)
[2021-07-16] MEDS ORDERED: MAG HYDROX/AL HYDROX/SIMETH 30 ML UDC PO PRN (01:00)
[2021-07-16] MEDS ORDERED: TEMAZEPAM 7.5 MG CAPSULE PO PRN (01:00)
[2021-07-16 02:03] VITALS: BP 132/78
[2021-07-16 02:35] VITALS: BP 119/77
--- NOTE | 2021-07-16 04:05 | NUR ---
N NOTES: ADMITTED THIS 60Y/O FEMALE PATIENT DIRECT ADMIT FROM [facility], ADMITTED TO GPS ON 5150 HOLD, PER HOLD DTO, GRAVELY DISABLE ,PT. IS DELUSIONAL,PARANOID, UNABLE TO CARE FOR HER SELF,AND UNABLE TO PLAN FOR SAFETY , UPON FACE TO FACE ASSESSMENT PATIENT IS A&O X 2,3 , PARNOID DISHELVED ,EASILY GETS AGITATED, DISORGNIZED, REFUSED TO TAKE SHOWER DENIES SI /HI AT THIS TIME, PT. IS POOR HISTORIAN, POOR INSIGHT ,POOR JUDGEMENT, PT. DENIES SI HI AT THIS TIME , BOTH MD AWARE AND NOTIFIED OF THE ADMISSION, BELONGINGS CONTRABAND WERE DONE , PT. REFUSED TO SIGNS OF ADMISSION PAPER DUE TO MENTAL CONDITION,NURSING ASSESSMENT DONE ,PT. RIGHTS DISCUSS BY WHEEL SETTER , PROVIDE THE PT. WITH HANDBOOK, AND MEDICATIONS GUIDE, ENVIRONMENTAL SAFETY CHECK DONE, ENCOURAGED PT. VERBALIZED ANY FEELING CONCERN TO STAFF, ORIENT TO UNIT POLICY, NO ACUTE DISTRESS NOTED,VITAL SIGNS WNL ,DENIES ANY PAIN AT THIS TIME,WILL CONTINUE TO MONITOR FOR Q15 SAFETY AND BEHAVIOR.
--- NOTE | 2021-07-16 04:15 | NUR ---
ADMISSION NOTES: ADMITTED THIS 60Y/O FEMALE PATIENT DIRECT ADMIT FROM [facility], ADMITTED TO GPS ON 5150 HOLD, PER HOLD DTO, GRAVELY DISABLE ,PT. IS DELUSIONAL,PARANOID, UNABLE TO CARE FOR HER SELF,AND UNABLE TO PLAN FOR SAFETY , UPON FACE TO FACE ASSESSMENT PATIENT IS A&O X 2,3 , PARNOID DISHELVED ,EASILY GETS AGITATED, DISORGNIZED, REFUSED TO TAKE SHOWER DENIES SI /HI AT THIS TIME, PT. IS POOR HISTORIAN, POOR INSIGHT ,POOR JUDGEMENT, PT. DENIES SI HI AT THIS TIME , BOTH MD AWARE AND NOTIFIED OF THE ADMISSION, BELONGINGS CONTRABAND WERE DONE , PT. REFUSED TO SIGNS OF ADMISSION PAPER DUE TO MENTAL CONDITION,NURSING ASSESSMENT DONE ,PT. RIGHTS DISCUSS BY [employer] SUPERVISOR , PROVIDE THE PT. WITH HANDBOOK, AND MEDICATIONS GUIDE, ENVIRONMENTAL SAFETY CHECK DONE, ENCOURAGED PT. VERBALIZED ANY FEELING CONCERN TO STAFF, ORIENT TO UNIT POLICY, NO ACUTE DISTRESS NOTED,VITAL SIGNS WNL ,DENIES ANY PAIN AT THIS TIME,WILL CONTINUE TO MONITOR FOR Q15 SAFETY AND BEHAVIOR.
--- NOTE | 2021-07-16 04:20 | NUR ---
RN NOTES: REFUSED BLOOD SUGAR CHECK PT REFUSED FOR BLOOD SUGAR CHECK; EXPLAINED RISK AND BENEFITS BUT PT STILL . WILL CONTINUE TO MONITOR FOR SAFETY AND BEHAVIOR.
--- NOTE | 2021-07-16 04:26 | NUR ---
RN NOTES: REFUSED SKIN ASSESSMENT PT. REFUSED SKIN ASSESSMENT OFFERD X3 EXPLINED RISKS AND BENFITS STRONGLY REFUSED, PT.EASILY AGITATED,PARANOID , DISHELVED, PER ,PT. MY SKIN IS FINE, WILL CONTINUE WITH CARE.
[2021-07-16 08:00] VITALS: BP 105/70
[2021-07-16] MEDS ORDERED: ALPRAZOLAM 1 MG TABLET PO PRN (10:00)
[2021-07-16] MEDS: oxyCODONE IR immediate release 5 MG PO SCH ×2 (13:42→17:06)
[2021-07-16 16:00] VITALS: BP 149/79
[2021-07-16] MEDS: clonazePAM 0.5 MG TABLET PO PRN ×2 (16:09→21:20)
--- NOTE | 2021-07-16 16:09 | NUR ---
RN-NOTES PATIENT REQUESTING ANXIETY MEDICATION. KLONOPIN 0.5MG P.O GIVEN PRN ORDER WILL CONT. MONITORING FOR SAFETY AND BEHAVIOR.
[2021-07-16 20:00] VITALS: BP 122/74
[2021-07-16 20:18] VITALS: BP 122/74
--- NOTE | 2021-07-16 21:24 | NUR ---
RN NOTE: ANXIETY PATIENT C/O RESTLESSNESS AND ANXIETY, PATIENT REQUESTED FOR ANXIETY MEDICINE. PRN KLONOPIN 0.5 MG PO ADMINISTERED. WILL CONTINUE TO MONITOR.
[2021-07-16] MEDS: ARIPIPRAZOLE 5 MG TABLET PO SCH (21:54)
[2021-07-17 07:28] LABS: BASOPHILS # (AUTO) 0.1 K/uL (0.0-0.2); BASOPHILS % (AUTO) 0.9 % (0.0-2.0); EOSINOPHILS % (AUTO) 2.3 % (0.0-6.0); HEMATOCRIT 32 % (33-45); HEMOGLOBIN 10.6 g/dL (11.5-14.8); LYMPHOCYTES # (AUTO) 2.7 K/uL (0.8-4.8); LYMPHOCYTES % (AUTO) 33.6 % (20.0-44.0); MEAN CORPUSCULAR HGB CONC 33 g/dl (31.0-36.0); MEAN CORPUSCULAR VOLUME 83 fL (82-100); MONOCYTES # (AUTO) 0.5 K/uL (0.1-1.30); NEUTROPHILS # (AUTO) 4.4 K/uL (1.8-8.9); NEUTROPHILS % (AUTO) 56.2 % (43.0-81.0); PLATELET COUNT (AUTO) 307 K/uL (150-450); RED BLOOD CELL COUNT(AUTO) 3.89 MIL/uL (4.0-5.2); WHITE BLOOD COUNT (AUTO) 7.9 K/uL (4.3-11.0)
[2021-07-17 07:39] LABS: BILIRUBIN,TOTAL 0.3 mg/dL (0.2-1.0); CALCIUM, SERUM 8.2 mg/dL (8.5-10.1); CREATININE 0.6 mg/dL (0.6-1.3); POTASSIUM 3.7 mmol/L (3.5-5.1); TOTAL PROTEIN, SERUM 6.6 g/dL (6.4-8.2)
[2021-07-17 07:42] LABS: CHOLESTEROL 161 mg/dL (<200); HDL CHOLESTEROL 58 mg/dL (40-60); LDL 79 mg/dL (0-99); TRIGLYCERIDES 126 mg/dL (30-150)
[2021-07-17 08:00] VITALS: BP 116/58
[2021-07-17] MEDS: Fluoxetine 10 mg capsule PO SCH (08:57)
[2021-07-17] MEDS: oxyCODONE IR immediate release 5 MG PO SCH ×3 (08:57→17:25)
--- NOTE | 2021-07-17 09:55 | NUR ---
URIEL Initial Discharge Plan: Patient reported that she lives at [address] [place] [address]; ([phone]) with her significant other Leonides (unable to give contact information. Patient would want to return back to her apartment. SW will coordinate with patient, family, and treatment team to coordinate appropriate discharge.
--- NOTE | 2021-07-17 09:57 | NUR ---
SW Family Contact: Pt gave consent for this SW to contact brother Elijah ([phone]) to gather collateral, however, he was unavailable and this SW left a voicemail.
--- NOTE | 2021-07-17 10:11 | NUR ---
Treatment Plan: Pt refused to sign her treatment plan and stated "I don't feel comfortable signing, I do not think this is true". Pt in denial of her mental status.
[2021-07-17 16:00] VITALS: BP 117/65
--- NOTE | 2021-07-17 19:00 | NUR ---
RN-NOTES PATIENT REFUSED SHOWER THIS SHIFT DESPITE ENCOURAGEMENT, PATIENT NOTED WITH PARANOID BEHAVIOR KEEP UN PLUGGING HER BED. STATED" I'M VERY SCARED IF SOMETHING HAPPEN WHEN ITS PLUG IN".REASSURED PATIENT, CHARGE NURSE AGREED TO UNPLUG THE BED. PATIENT IS AMBULATORY WITH STEADY GAIT. WILL ENDORSE TO INCOMING NURSE FOR CONTINUITY OF CARE.
[2021-07-17 20:23] VITALS: BP 135/63
[2021-07-17 20:27] VITALS: BP 135/63
[2021-07-17] MEDS: ARIPIPRAZOLE 5 MG TABLET PO SCH (21:42)
[2021-07-17] MEDS: ACETAMINOPHEN 325 MG TABLET PO PRN (21:45)
--- NOTE | 2021-07-17 21:45 | NUR ---
RN NOTE: PAIN PATIENT C/O GENERALIZED BODY PAIN 10/29, PATIENT WANTED TO TAKE TYLENOL, PRN TYLENOL 650 MG PO ADMINISTERED.
--- NOTE | 2021-07-17 22:55 | NUR ---
RN NOTE: REFUSED KLONOPIN PATIENT REQUESTED TO TAKE KLONOPIN BEFORE TAKING SCHEDULED MEDICINE AT 2200. BUT WHEN KLONOPIN 0.5 MG 1 TAB WAS OPENED AND OFFERED TO THE PATIENT, PATIENT CHANGED HER MIND AND REFUSED TO TAKE KLONOPIN REQUESTED. MEDICATION WAS OPENED AND UNABLE TO RETURN BACK TO THE [facility]. CHARGE NURSE MADE AWARE AND WASTED KLONOPIN 0.5 MG 1 TAB WITNESSED BY CHARGE NURSE.
[2021-07-18 08:00] VITALS: BP 101/58
[2021-07-18] MEDS: Fluoxetine 10 mg capsule PO SCH (09:13)
[2021-07-18] MEDS: oxyCODONE IR immediate release 5 MG PO SCH ×3 (09:14→17:02)
[2021-07-18] MEDS: LORAZEPAM 1 MG TABLET PO PRN ×2 (12:13→19:59)
--- NOTE | 2021-07-18 12:14 | NUR ---
RN-NOTES PATIENT REQUESTING FOR ATIVAN. ATIVAN 1MG P.O GIVEN PRN ORDER WILL CONT. MONITORING FOR SAFETY AND BEHAVIOR.
--- NOTE | 2021-07-18 13:20 | NUR ---
RN-NOTES PATIENT LYING IN BED AWAKE,ALERT ,CALM, NO ACUTE DISTRESS NOTED.
[2021-07-18 16:00] VITALS: BP 113/57
[2021-07-18] MEDS: ACETAMINOPHEN 325 MG TABLET PO PRN (19:58)
--- NOTE | 2021-07-18 19:59 | NUR ---
GPS-RN NOTES: ANXIETY PATIENT C/O FEELING ANXIOUS. PRN ATIVAN 1MG PO GIVEN ORDERED. WILL CONTINUE TO MONITOR FOR PT'S SAFETY.
[2021-07-18 20:06] VITALS: BP 117/65
[2021-07-18] MEDS: ARIPIPRAZOLE 5 MG TABLET PO SCH (21:02)
[2021-07-19] MEDS: LORAZEPAM 1 MG TABLET PO PRN ×3 (03:32→20:05)
--- NOTE | 2021-07-19 03:32 | NUR ---
[id number]: ANXIETY PATIENT C/O FEELING ANXIOUS AND REQUESTING HER ATIVAN. PRN ATIVAN 1MG P.O GIVEN ORDERED. WILL CONTINUE TO MONITOR FOR PATIENT'S SAFETY.
[2021-07-19 08:00] VITALS: BP 112/58
[2021-07-19] MEDS: Fluoxetine 10 mg capsule PO SCH (08:32)
[2021-07-19] MEDS: oxyCODONE IR immediate release 5 MG PO SCH ×3 (08:34→16:22)
[2021-07-19 16:00] VITALS: BP 110/66
--- NOTE | 2021-07-19 20:00 | NUR ---
GPS-RN NOTES: PATIENT NOTED WITH MULTIPLE SCRATCHES ON HER UPPER/LOWER BACK AND RIGHT/LEFT SHOULDER. PT ENCOURAGED GENTLE RUBBING RATHER THAN SCRATCHING. KEEP FINGER NAILS SHORT. WOUND CARE CONSULT TRIGGERED. CHARGE NURSE MADE AWARE. WILL ENDORSE TO THE DAY SHIFT NURSE. Addendum: 07/20/21 at 0606 by IGNACIA SOLORIO RN WOUND CARE CONSULT ORDERED BY DR. CHU
--- NOTE | 2021-07-19 20:05 | NUR ---
[id number]: ANXIETY PATIENT C/O FEELING ANXIOUS AND REQUESTING FOR HER ATIVAN. PRN ATIVAN 1MG P.O GIVEN ORDERED. WILL CONTINUE TO MONITOR FOR PATIENT'S SAFETY.
[2021-07-19 20:08] VITALS: BP 100/58
[2021-07-19] MEDS: ARIPIPRAZOLE 5 MG TABLET PO SCH (21:32)
[2021-07-20 08:00] VITALS: BP 122/61
[2021-07-20] MEDS: Fluoxetine 10 mg capsule PO SCH (08:44)
[2021-07-20] MEDS: oxyCODONE IR immediate release 5 MG PO SCH ×3 (08:44→17:38)
[2021-07-20] MEDS: LORAZEPAM 1 MG TABLET PO PRN ×2 (10:24→21:43)
--- NOTE | 2021-07-20 10:25 | NUR ---
pt c/o anxiety medicated with Ativan 1mg will continue to monitor .
--- NOTE | 2021-07-20 10:38 | NUR ---
SW Note: SW spoke with pt to gather more information. Pt. stated that she lives with her fiance Leonides ([phone]) ([phone]) and to confirm the address with him. She reported that she lives with her fiance and wants to go back to live with him.
--- NOTE | 2021-07-20 10:40 | NUR ---
SW Contact: SW attempted to contact tanner Amayauie ([phone]) ([phone]), however, the number was unavailable and was unable to leave a voicemail.
--- NOTE | 2021-07-20 11:43 | NUR ---
URIEL Note: SW spoke with pt and stated her fiance is not available and does not answer phone. She stated that she [facility] ([phone]). [facility] contacted [facility] and spoke with Claudia who stated packet needs to be done and they would have to review. URIEL spoke with Claudia in front of pt. Claudia emailed applications to pt and URIEL showed applications to pt that it will be filled out and faxed. Takes 1-2 days to review, per Claudia. URIEL also gave pt options of motel, assisted living, and nursing facility. Pt refused all and appeared paranoid and confused. She kept stating she wants to go to her fiance but then changes her story that she wants to go to a intermediate.
--- NOTE | 2021-07-20 11:45 | NUR ---
[facility]: [facility] ([phone]), spoke with Claudia (F: [phone]) who stated she will email this URIEL application packet. URIEL submitted and sent clinicals to Claudia. URIEL placed copy in pt's chart.
--- NOTE | 2021-07-20 12:54 | NUR ---
[facility]: [facility] ([phone]), spoke with Claudia (F: [phone]). URIEL faxed clincals to admissions (F:[phone]) for review.
--- NOTE | 2021-07-20 14:36 | NUR ---
URIEL Note: SW met with pt to conduct therapy. Pt appeared suspicious of this staff and did not want to conduct therapy at this time.
--- NOTE | 2021-07-20 14:44 | NUR ---
[facility]: [facility] [place] ([phone]), spoke with Claudia (F: [phone]) cannot accept pt.
[2021-07-20 16:00] VITALS: BP 120/70
[2021-07-20 20:00] VITALS: BP 132/72
[2021-07-20 20:45] VITALS: BP 132/72
[2021-07-20] MEDS: ARIPIPRAZOLE 5 MG TABLET PO SCH (21:20)
--- NOTE | 2021-07-20 21:48 | NUR ---
RN NOTE: ANXIETY PATIENT IS FEELING ANXIOUS AND RESTLESS, PATIENT REQUESTED TO TAKE ATIVAN AT THIS TIME. PRN ATIVAN 1 MG PO ADMINISTERED ORDERED.
--- NOTE | 2021-07-21 06:53 | NUR ---
RN NOTE PATIENT SLEPT WELL AT NIGHT. NO BEHAVIOR EPISODE NOTED THROUGH OUT THE SHIFT.
[2021-07-21 08:00] VITALS: BP 104/57
[2021-07-21] MEDS: Fluoxetine 10 mg capsule PO SCH (08:05)
[2021-07-21] MEDS: oxyCODONE IR immediate release 5 MG PO SCH ×3 (08:06→16:24)
[2021-07-21] MEDS: LORAZEPAM 1 MG TABLET PO PRN ×2 (10:06→20:11)
--- NOTE | 2021-07-21 10:10 | NUR ---
RN-CO: ATIVAN PO GIVEN FOR C/O MODERATE TO SEVERE ANXIETY.
--- NOTE | 2021-07-21 10:11 | NUR ---
RN-CO: TRIED TO COLLECT URINE SPECIMEN BUT PT PROVIDED INSUFFICIENT AMOUNT . I WILL TRY AGAIN.
--- NOTE | 2021-07-21 10:40 | NUR ---
URIEL Note: URIEL and Vani Licona LCSW met with patient to discuss discharge plan. Patient stated that she will be going back [facility] upon dc. SW will provided appropriate resources upon discharge.
--- NOTE | 2021-07-21 10:58 | NUR ---
WOUND CARE CONSULT: PT SEEN FOR SCRATCH COP[place]AND ON UPPER BACK AREA, PRESENT ON ADMISSION. NO ERYTHEMA, DRAINAGE OR TENDERNESS NOTED. WILL SEE PRN.
[2021-07-21 16:05] VITALS: BP 100/63
[2021-07-21 20:00] VITALS: BP 120/72
--- NOTE | 2021-07-21 20:12 | NUR ---
RN NOTE: ANXIETY PATIENT IS FEELING ANXIOUS AND RESTLESS, PATIENT REQUESTED TO TAKE ATIVAN AT THIS TIME. PRN ATIVAN 1 MG PO ADMINISTERED ORDERED.
[2021-07-21 20:20] VITALS: BP 120/72
--- NOTE | 2021-07-21 20:30 | NUR ---
RN NOTE PATIENT HAD VISITOR NEXT TO HER UPON BEGINNING OF SHIFT, PER PATIENT," HE IS MY ," WHEN ASKED THE PATIENT THAT IF PET CARE WORKER CAN CALL HER BROTHER SHERRIE PHIPPS (EMERGENCY CONTACT) TO INFORM HIM THAT PATIENT'S VISITED THE PATIENT TODAY, BUT PATIENT REFUSED TO NOTIFY HER BROTHER DESIRE AND STATED," MY BROTHER IS TO NOTIFY ONLY IN CASE OF EMERGENCY, THIS IS NOT AN EMERGENCY, I DO NOT WANT TO INVOLVE OR INFORM MY BROTHER IF MY COMES TO VISIT ME, I CAN MAKE MY OWN DECISIONS, NOT MY BROTHER,"
[2021-07-21] MEDS: ARIPIPRAZOLE 5 MG TABLET PO SCH (21:19)
[2021-07-21] MEDS: ACETAMINOPHEN 325 MG TABLET PO PRN (21:21)
--- NOTE | 2021-07-21 21:22 | NUR ---
RN NOTE: PAIN PATIENT C/O GENERALIZED BODY PAIN 10/29 AND REQUESTED TO TAKE TYLENOL. PRN TYLENOL 650 MG PO ADMINISTERED ORDERED.
--- NOTE | 2021-07-21 21:30 | NUR ---
RN NOTE PATIENT REFUSED SKIN ASSESSMENT TONIGHT, PER PATIENT," MY SKIN IS OK, I JUST HAVE SOME SCRATCHES BECAUSE I ITCH SOMETIMES, BUT I DON'T NEED TO YOU TO CHECK ANYTHING." DESPITE OF EXPLANATIONS, PATIENT CONTINUED TO REFUSE SKIN ASSESSMENT.
--- NOTE | 2021-07-21 21:57 | NUR ---
RN NOTE: REFUSED UA SPECIMEN COLLECTION PATIENT WAS REMINDED TO COLLECT URINE SPECIMEN ORDERED BY MD IVETTE HILL, BUT PATIENT STATED," I HAD URINE TESTED AT [facility] BEFORE I CAME HERE, DOCTOR TOLD ME THIS MORNING THAT SHE WILL GET THE URINE RESULTS FROM [facility] SO I DON'T NEED TO GIVE A SAMPLE AGAIN." DESPITE OF EXPLANATIONS, PATIENT CONTINUED TO REFUSE TO PROVIDE URINE SPECIMEN AND WANTS TO TALK TO THE DOCTOR IN THE MORNING. WILL ENDORSE TO AM RN TO INFORM AM MD ABOUT PATIENT'S URINE SAMPLE COLLECTION REFUSAL.
[2021-07-22 08:00] VITALS: BP 116/55
[2021-07-22] MEDS: Fluoxetine 10 mg capsule PO SCH (08:01)
[2021-07-22] MEDS: oxyCODONE IR immediate release 5 MG PO SCH ×3 (08:01→17:04)
--- NOTE | 2021-07-22 10:45 | NUR ---
RN-CO: PT REFUSED AGAIN TO PROVIDE URINE SPECIMEN. IVETTE Hahn NP IS AWARE.
[2021-07-22] MEDS: LORAZEPAM 1 MG TABLET PO PRN ×2 (10:56→18:58)
--- NOTE | 2021-07-22 10:58 | NUR ---
RN-CO: ATIVAN 1 MG PO GIVEN FOR C/O ANXIETY.
[2021-07-22 16:00] VITALS: BP 122/70
--- NOTE | 2021-07-22 18:58 | NUR ---
RN-CO: ATIVAN GIVEN FOR ANXIETY.
[2021-07-22 20:00] VITALS: BP 101/59
[2021-07-22 20:26] VITALS: BP 101/59
[2021-07-22] MEDS: ARIPIPRAZOLE 5 MG TABLET PO SCH (21:15)
[2021-07-23 08:00] VITALS: BP 111/63
[2021-07-23] MEDS: Fluoxetine 10 mg capsule PO SCH (08:12)
[2021-07-23] MEDS: oxyCODONE IR immediate release 5 MG PO SCH ×3 (08:12→16:06)
[2021-07-23] MEDS ORDERED: ARIPIPRAZOLE 5 MG TABLET PO SCH (09:00)
[2021-07-23] MEDS: LORAZEPAM 1 MG TABLET PO PRN ×2 (10:24→20:20)
--- NOTE | 2021-07-23 10:25 | NUR ---
RN NOTE : ATIVAN 1 MG PO GIVEN FOR C/O ANXIETY.
[2021-07-23 16:00] VITALS: BP 106/58
--- NOTE | 2021-07-23 16:04 | NUR ---
Court Hearing: Patient's court hearing for 1270 was today and it was upheld for GD.
[2021-07-23 20:00] VITALS: BP 134/67
--- NOTE | 2021-07-23 20:20 | NUR ---
[id number]: ANXIETY PATIENT C/O FEELING ANXIOUS AND REQUESTING FOR ATIVAN. PRN ATIVAN 1MG P.O GIVEN ORDERED. WILL CONTINUE TO MONITOR FOR PATIENT'S SAFETY.
[2021-07-23] MEDS: ARIPIPRAZOLE 5 MG TABLET PO SCH (21:20)
[2021-07-23] MEDS: ACETAMINOPHEN 325 MG TABLET PO PRN (21:32)
--- NOTE | 2021-07-23 21:32 | NUR ---
RN NOTE: PAIN PATIENT C/O GENERALIZED BODY PAIN 10/29 AND REQUESTED TO TAKE TYLENOL. PRN TYLENOL 650 MG PO ADMINISTERED ORDERED. WILL CONTINUE TO REASSESS.
[2021-07-24 08:00] VITALS: BP 100/59
[2021-07-24] MEDS: oxyCODONE IR immediate release 5 MG PO SCH ×3 (08:26→17:13)
[2021-07-24] MEDS: Fluoxetine 10 mg capsule PO SCH (08:27)
[2021-07-24] MEDS: LORAZEPAM 1 MG TABLET PO PRN ×2 (11:11→20:17)
[2021-07-24 16:00] VITALS: BP 137/64
--- NOTE | 2021-07-24 19:00 | NUR ---
PATIENT REQUESTING PAIN MEDICATION 60 MINUTES TO 30 MINUTES BEFORE DUE FOR EACH PAIN MEDICATION, APPEARS TO BE DRUG SEEKING, ABLE TO COMMUNICATE NEEDS WELL, CLEANSED SELF IN BATH ROOM SINK, REFUSED SHOWER, BRUSHED TEETH AND HAD WATER POURED ALL OVER FRONT OF GOWN TOP TO BOTTOM AND WAS ASKED TO PLEASE CHANGE INTO A NEW GOWN REFUSED AND GOT ANGRY AT SCREEN AND CYCLONE REPAIRER'S THAT THEY ASKED HER TO CHANGE INTO NEW GOWN, AFTER MUCH ENCOURAGMENT FINALLY CHANGED INTO THE GOWN. BED WHEELS LOCKED, LOW POSITION, NO C/O PAIN, NO DISTRESS, CONFUSION AT TIMES.
[2021-07-24 20:02] VITALS: BP 144/66
[2021-07-24 20:15] VITALS: BP 144/66
[2021-07-24] MEDS: ARIPIPRAZOLE 5 MG TABLET PO SCH (21:08)
[2021-07-25] MEDS: ACETAMINOPHEN 325 MG TABLET PO PRN (01:28)
--- NOTE | 2021-07-25 06:02 | NUR ---
CALM, PLEASANT, MED SEEKER, GIVEN ATIVAN AND TYLENOL, STAYED IN ROOM MOST OF THE SHIFT.
[2021-07-25 08:00] VITALS: BP 106/64
[2021-07-25] MEDS: oxyCODONE IR immediate release 5 MG PO SCH ×3 (08:11→16:08)
[2021-07-25] MEDS: Fluoxetine 10 mg capsule PO SCH (08:11)
--- NOTE | 2021-07-25 11:09 | NUR ---
RN-CO: PT REFUSED TO PROVIDE URINE SPECIMEN. ROHIT ROBERTS NP MADE AWARE. PT IS PARANOID ABOUT PROVIDING SPECIMEN.
[2021-07-25] MEDS: LORAZEPAM 1 MG TABLET PO PRN ×2 (11:58→17:58)
--- NOTE | 2021-07-25 11:58 | NUR ---
RN-CO:ATIVAN 0.5 MG PO FOR C/O ANXIETY.
[2021-07-25 16:00] VITALS: BP 120/72
--- NOTE | 2021-07-25 17:59 | NUR ---
RN NOTE : ATIVAN 1 MG PO GIVEN FOR C/O ANXIETY.
[2021-07-25 20:14] VITALS: BP 104/69
[2021-07-25] MEDS: ARIPIPRAZOLE 5 MG TABLET PO SCH (21:05)
[2021-07-26 07:10] LABS: CALCIUM, SERUM 9.1 mg/dL (8.5-10.1); CREATININE 0.7 mg/dL (0.6-1.3); POTASSIUM 3.8 mmol/L (3.5-5.1)
[2021-07-26 08:00] VITALS: BP 117/66
[2021-07-26] MEDS: oxyCODONE IR immediate release 5 MG PO SCH ×3 (08:06→16:11)
[2021-07-26] MEDS: Fluoxetine 10 mg capsule PO SCH (08:06)
[2021-07-26] MEDS: LORAZEPAM 1 MG TABLET PO PRN ×3 (10:50→22:57)
--- NOTE | 2021-07-26 10:51 | NUR ---
RN-CO: ATIVAN PO GIVEN FOR C/O MODERATE ANXIETY.
[2021-07-26 16:00] VITALS: BP 142/65
--- NOTE | 2021-07-26 16:52 | NUR ---
RN-CO: ATIVAN PO GIVEN FOR RESTLESSNESS AND ANXIETY.
[2021-07-26 19:53] VITALS: BP 105/67
[2021-07-26] MEDS: ARIPIPRAZOLE 5 MG TABLET PO SCH (21:54)
[2021-07-26] MEDS: ACETAMINOPHEN 325 MG TABLET PO PRN (21:55)
--- NOTE | 2021-07-26 21:56 | NUR ---
GPS RN NOTES: TYLENOL 650MG GIVEN PO FOR GENERALIZED PAIN AT 2156. WILL CONTINUE TO MONITOR.
--- NOTE | 2021-07-26 23:01 | NUR ---
GPS RN NOTES: PATIENT IS ANXIOUS, RESTLESS, ASKING FOR ATIVAN. ATIVAN 1MG GIVEN PO PRN ORDERED AT 2257. PATIENT IS CURRENTLY LAYING ON BED. WILL CONTINUE TO MONITOR.
[2021-07-27 08:00] VITALS: BP 100/54
[2021-07-27] MEDS: oxyCODONE IR immediate release 5 MG PO SCH ×4 (08:55→16:27)
[2021-07-27] MEDS: Fluoxetine 10 mg capsule PO SCH (08:55)
--- NOTE | 2021-07-27 11:05 | NUR ---
RN GPS NOTE URINE SPECIMEN COLLECTED FOR U/A. CALLED LAB FOR P/U.
[2021-07-27] MEDS: LORAZEPAM 1 MG TABLET PO PRN ×2 (14:24→21:28)
[2021-07-27 16:00] VITALS: BP 145/56
[2021-07-27 20:26] VITALS: BP 100/51
--- NOTE | 2021-07-27 21:00 | NUR ---
GPS RN NOTE PT IS ANXIOUS AND REFUSED SLEEPING MED. ATIVAN 1 MG PO GIVEN FOR ANXIETY. CONTINUE TO MONITOR HER.
[2021-07-27] MEDS: ARIPIPRAZOLE 5 MG TABLET PO SCH (21:28)
--- NOTE | 2021-07-27 22:00 | NUR ---
GPS RN NOTE ANXIETY SUBSIDED. PT FALLING ASLEEP. NO DISTRESS OR DISCOMFORT NOTED.
[2021-07-28 08:00] VITALS: BP 138/60
--- NOTE | 2021-07-28 08:08 | NUR ---
URIEL Discharge Note: Patient will be discharged back home located at [address] [place] [phone]; ([phone]). Patient wants to go back to living with her sandra Coyle ([phone]). Patients sandra Coyle ([phone]) will flower buncher or picker pt at 10AM. Bus pass will be given to pt. URIEL left a voicemail to patients brother Elijah ([phone]) of discharge. Patient appears to be alert and oriented x3. Patient is happy to be going back home. Patient denies suicidal or homicidal ideation. Patient denies visual/auditory hallucinations. Patient referred to [facility] for primary doctor located at [address], [address], [place] [address] ([phone]). Patient referred for intake evaluation (psychiatry) at [facility] located at [address] [place], [place] [id number]; ([phone]) on July 29 at 11:30AM. Patient refused to sign the homeless waiver upon discharge and a copy was placed in the chart. Homeless resources were provided and include 211 information line for shelters and homeless resources. Patient presents with euthymic mood and congruent affect.
[2021-07-28] MEDS: oxyCODONE IR immediate release 5 MG PO SCH ×2 (09:00→12:38)
[2021-07-28] MEDS: Fluoxetine 10 mg capsule PO SCH (09:00)
--- NOTE | 2021-07-28 13:15 | NUR ---
Patient discharged home in stable condition.Compliant with medications cooperative with treatment plans Patient denies SI/HI/AVH .Behavior improved ,psychiatric tx plans met ,medical tx plans differed for for continual monitoring .Educated pt about after care plan (Exit -care)and copy provided .Returned personal belongings to patient prescription given and explained to patient able to verbalize understanding, all discharge instructions reviewed with patient and encourage patient to f/u with psychiatrist and noxious weeds and pest inspector in one week .Vs stable ,no c/o pain .Patient seen by berta BRADLEY and Dr. Evens Barboza called back with discharge orders .Patient discharged at 1315 with her friend .
== END 2021-07-28 13:15 | disposition home or self-care (01) | DRG 885 ==
LOC: GPS 00:11
PROVIDERS: ADMIT Nurse Practitioner Psychiatric/Mental Health; ATTEND Internal Medicine
DX: F29 Unspecified psychosis not due to a substance or known physiological condition (principal); F33.3 Major depressive disorder, recurrent, severe with psychotic symptoms; F41.9 Anxiety disorder, unspecified; G89.4 Chronic pain syndrome; Z73.6 Limitation of activities due to disability; M62.81 Muscle weakness (generalized); Z76.5 Malingerer [conscious simulation]
CPT/HCPCS: 36415; 80048-TC; 80053-TC; 80061-TC; 85025-TC; 87081-TC

== ENCOUNTER 2021-08-17 13:45 | Emergency (ER) | payer MEDICARE ==
[~2021-08-17] VITALS: Ht 160 cm; Wt 65.8 kg
[~2021-08-17 13:45] MED LIST changes: -QUET25TA PO
--- NOTE | 2021-08-17 13:50 | NUR ---
BIBS FOR MED REFILL: PROZAC AND ABILIFY. HAS BEEN OUT OF MEDS FOR 3 DAYS. DENIES SI/HI. WILL CONTINUE TO MONITOR THE PATIENT.
[2021-08-17 13:51] VITALS: BP 138/61
--- NOTE | 2021-08-17 13:51 | NUR ---
BIBS FOR MED REFILL: PROZAC AND ABILIFY. HAS BEEN OUT OF MEDS FOR 3 DAYS DENIES SI/HI. PT A/OX4. TOLERATING R/A WELL WITH NO SOB
[2021-08-17] MEDS ORDERED: FLUO20CA36 PO (14:44)
[2021-08-17] MEDS ORDERED: ARIP10TA9 PO (14:44)
--- NOTE | 2021-08-17 15:00 | NUR ---
Patient discharged to home in stable condition. Written and verbal after care instructions given. Patient verbalizes understanding of instruction.
== END 2021-08-17 15:00 | disposition home or self-care (01) ==
LOC: ER 13:47
DX: Z76.0 Encounter for issue of repeat prescription (principal); F32.9 Major depressive disorder, single episode, unspecified; F29 Unspecified psychosis not due to a substance or known physiological condition; F41.9 Anxiety disorder, unspecified; G89.4 Chronic pain syndrome; Z90.49 Acquired absence of other specified parts of digestive tract; Z98.890 Other specified postprocedural states; Z88.8 Allergy status to other drugs, medicaments and biological substances; Z88.5 Allergy status to narcotic agent

== ENCOUNTER 2021-09-01 04:09 | Emergency (ER) | payer MEDICARE ==
[~2021-09-01] VITALS: Ht 160 cm; Wt 65.8 kg
[~2021-09-01 04:09] MED LIST changes: +ARIP10TA9 PO; +FLUO20CA36 PO
[2021-09-01 04:16] VITALS: BP 115/81
[2021-09-01] MEDS ORDERED: predniSONE 20 MG TABLET PO ONE (04:30)
[2021-09-01] MEDS ORDERED: IPRATROPIUM NEB FS 0.5 MG/2.5 ML AMPUL.NEB NEB ONE (04:30)
[2021-09-01] MEDS ORDERED: LORAZEPAM 1 MG TABLET PO ONE (04:30)
[2021-09-01] MEDS ORDERED: ALBUTEROL FS 2.5 MG/3 ML VIAL.NEB NEB ONE (04:30)
--- NOTE | 2021-09-01 04:30 | NUR ---
RT CALLED FOR BREATHING TREATMENT.
[2021-09-01] MEDS ORDERED: FLUO20CA36 PO ×2 (04:31→05:17)
[2021-09-01] MEDS ORDERED: PRED50TA PO ×2 (04:31→05:17)
[2021-09-01] MEDS ORDERED: ARIP15TA3 PO ×2 (04:31→05:17)
[2021-09-01] MEDS ORDERED: ALBUTEROL FS 2.5 MG/3 ML VIAL.NEB ONE (04:35)
[2021-09-01] MEDS ORDERED: LORAZEPAM 1 MG TABLET ONE (04:35)
[2021-09-01] MEDS ORDERED: IPRATROPIUM NEB FS 0.5 MG/2.5 ML AMPUL.NEB ONE (04:35)
[2021-09-01] MEDS ORDERED: predniSONE 20 MG TABLET ONE (04:36)
--- NOTE | 2021-09-01 05:25 | NUR ---
Patient discharged to home in stable condition. Written and verbal after care instructions given. Patient verbalizes understanding of instruction. Pt ambulatory with a steady gait
== END 2021-09-01 05:25 | disposition home or self-care (01) ==
LOC: ER 04:13
DX: J45.909 Unspecified asthma, uncomplicated (principal); F41.9 Anxiety disorder, unspecified; Z90.49 Acquired absence of other specified parts of digestive tract; Z90.89 Acquired absence of other organs; Z98.890 Other specified postprocedural states; Z88.8 Allergy status to other drugs, medicaments and biological substances; Z88.5 Allergy status to narcotic agent; Z79.899 Other long term (current) drug therapy
CPT/HCPCS: 93005; 94640; 99283; J7512

== ENCOUNTER 2022-03-05 13:10 | Emergency (ER) | payer MEDICARE, OTHER ==
[~2022-03-05] VITALS: Ht 160 cm; Wt 65.8 kg
[~2022-03-05 13:10] MED LIST changes: +ARIP15TA3 PO; +PRED50TA PO
[2022-03-05 13:20] VITALS: BP 154/78
--- NOTE | 2022-03-05 14:37 | NUR ---
URINE COLLECTED AND SENT TO LAB
[2022-03-05 15:08] LABS: BASOPHILS # (AUTO) 0.1 K/uL (0.0-0.2); BASOPHILS % (AUTO) 1.3 % (0.0-2.0); EOSINOPHILS % (AUTO) 2.2 % (0.0-6.0); HEMATOCRIT 37 % (33-45); HEMOGLOBIN 11.7 g/dL (11.5-14.8); LYMPHOCYTES # (AUTO) 1.7 K/uL (0.8-4.8); LYMPHOCYTES % (AUTO) 29.2 % (20.0-44.0); MEAN CORPUSCULAR HGB CONC 32 g/dl (31.0-36.0); MEAN CORPUSCULAR VOLUME 83 fL (82-100); MONOCYTES # (AUTO) 0.4 K/uL (0.1-1.30); MONOCYTES % (AUTO) 7.1 % (2.0-12.0); NEUTROPHILS # (AUTO) 3.5 K/uL (1.8-8.9); NEUTROPHILS % (AUTO) 60.2 % (43.0-81.0); PLATELET COUNT (AUTO) 366 K/uL (150-450); RED BLOOD CELL COUNT(AUTO) 4.47 MIL/uL (4.0-5.2); WHITE BLOOD COUNT (AUTO) 5.8 K/uL (4.3-11.0)
[2022-03-05 15:29] LABS: ALANINE AMINOTRANSFERASE 20 U/L (12-78); ALBUMIN 3.4 g/dL (3.4-5.0); ALCOHOL, BLOOD < 3 mg/dL (0-0); ALKALINE PHOSPHATASE 115 U/L (46-116); ASPARTATE AMINOTRANSFERASE 18 U/L (15-37); BILIRUBIN,DIRECT 0.1 mg/dL (0.0-0.2); BILIRUBIN,TOTAL 0.3 mg/dL (0.2-1.0); CALCIUM, SERUM 9.1 mg/dL (8.5-10.1); CARBON DIOXIDE 29 mmol/L (21-32); CHLORIDE 105 mmol/L (98-107); CREATININE 0.7 mg/dL (0.6-1.3); GLUCOSE 99 mg/dL (74-106); SODIUM SERUM 140 mmol/L (136-145); TOTAL PROTEIN, SERUM 7.7 g/dL (6.4-8.2); UREA NITROGEN, BLOOD 11 mg/dL (7-18)
[2022-03-05 15:30] LABS: ACETAMINOPHEN < 10 ug/ml (10-30)
[2022-03-05 15:34] LABS: BILIRUBIN,URINE NEGATIVE (NEGATIVE); COLOR,URINE YELLOW (YELLOW); LEUKOCYTE ESTERASE ,URINE SMALL (NEGATIVE); NITRITE, URINE NEGATIVE (NEGATIVE); PH,URINE 6.5 (5.0-8.0); PROTEIN,URINE NEGATIVE (NEGATIVE); UGLUCOSE NEGATIVE (NEGATIVE); UROBILINOGEN,URINE 0.2 EU/dL (0.2)
[2022-03-05 15:49] LABS: BACTERIA,URINE 4+ /HPF (None Seen); RBC,URINE 21-50 /HPF (0-2)
[2022-03-05] MEDS ORDERED: CEPHALEXIN MONOHYDRATE 500 MG CAPSULE PO ONE ×2 (16:00→16:33)
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
[2022-03-05] MEDS ORDERED: CEPH500C2 PO (16:37)
== END 2022-03-05 17:40 | disposition home or self-care (01) ==
LOC: ER 13:20
DX: F29 Unspecified psychosis not due to a substance or known physiological condition (principal); N39.0 Urinary tract infection, site not specified; Z20.822 Contact with and (suspected) exposure to COVID-19; J45.909 Unspecified asthma, uncomplicated; Z90.49 Acquired absence of other specified parts of digestive tract; G89.4 Chronic pain syndrome; F11.20 Opioid dependence, uncomplicated; Z88.8 Allergy status to other drugs, medicaments and biological substances
CPT/HCPCS: 36415; 80048-TC; 80076-TC; 81001; 85025-TC; 87086-TC; 87186-TC; C9803; G0480

== ENCOUNTER 2022-04-07 10:50 | Emergency (ER) | payer MEDICARE, OTHER ==
[~2022-04-07] VITALS: Ht 160 cm; Wt 69.9 kg
[~2022-04-07 10:50] MED LIST changes: +CEPH500C2 PO
--- NOTE | 2022-04-07 10:50 | NUR ---
Kemi esqueda in [facility] - 04/07/22 at 1127 by LOKI MD AT [facility]
--- NOTE | 2022-04-07 11:00 | NUR ---
BIBRA 839 FOR C/O DIZZINESS X FEW DAYS. PLACED ON BED, AAOX4, BREATHING EVEN AND UNLABORED. SEEN AND EXAMINED BY DR NINA.
--- NOTE | 2022-04-07 11:20 | NUR ---
SEASONAL RETAIL MERCHANDISER AT BED SIDE
[2022-04-07 11:29] LABS: BASOPHILS # (AUTO) 0.1 K/uL (0.0-0.2); BASOPHILS % (AUTO) 1.2 % (0.0-2.0); EOSINOPHILS % (AUTO) 4.1 % (0.0-6.0); HEMATOCRIT 35 % (33-45); HEMOGLOBIN 11.4 g/dL (11.5-14.8); MEAN CORPUSCULAR HGB CONC 32 g/dl (31.0-36.0); MEAN CORPUSCULAR VOLUME 82 fL (82-100); MONOCYTES # (AUTO) 0.4 K/uL (0.1-1.30); MONOCYTES % (AUTO) 6.9 % (2.0-12.0); NEUTROPHILS # (AUTO) 2.8 K/uL (1.8-8.9); NEUTROPHILS % (AUTO) 51.8 % (43.0-81.0); PLATELET COUNT (AUTO) 353 K/uL (150-450); RED BLOOD CELL COUNT(AUTO) 4.29 MIL/uL (4.0-5.2); WHITE BLOOD COUNT (AUTO) 5.5 K/uL (4.3-11.0)
[2022-04-07 11:51] LABS: CALCIUM, SERUM 8.6 mg/dL (8.5-10.1); CREATININE 0.8 mg/dL (0.6-1.3); POTASSIUM 3.8 mmol/L (3.5-5.1)
--- NOTE | 2022-04-07 13:45 | NUR ---
Patient discharged to home in stable condition. Written and verbal after care instructions given. Patient wants to leave and get a taxi.
[2022-04-07 13:52] VITALS: BP 112/60
== END 2022-04-07 13:45 | disposition home or self-care (01) ==
LOC: ER 11:09
DX: R42 Dizziness and giddiness (principal); J45.909 Unspecified asthma, uncomplicated; F41.9 Anxiety disorder, unspecified; G89.4 Chronic pain syndrome; Z90.49 Acquired absence of other specified parts of digestive tract; Z90.89 Acquired absence of other organs; Z88.8 Allergy status to other drugs, medicaments and biological substances; Z88.5 Allergy status to narcotic agent; Z98.890 Other specified postprocedural states; Z79.899 Other long term (current) drug therapy
CPT/HCPCS: 36415; 80048-TC; 84484-TC; 85025-TC

== ENCOUNTER 2022-05-23 21:05 | Emergency (ER) | payer MEDICARE, OTHER ==
[~2022-05-23] VITALS: Ht 170.2 cm; Wt 68.0 kg
[2022-05-23 21:16] VITALS: BP 13/83
[2022-05-23 22:14] LABS: BASOPHILS # (AUTO) 0.1 K/uL (0.0-0.2); BASOPHILS % (AUTO) 0.6 % (0.0-2.0); EOSINOPHILS % (AUTO) 1.5 % (0.0-6.0); HEMATOCRIT 39 % (33-45); HEMOGLOBIN 12.7 g/dL (11.5-14.8); LYMPHOCYTES # (AUTO) 2.8 K/uL (0.8-4.8); LYMPHOCYTES % (AUTO) 29.3 % (20.0-44.0); MEAN CORPUSCULAR HGB CONC 33 g/dl (31.0-36.0); MEAN CORPUSCULAR VOLUME 81 fL (82-100); MONOCYTES # (AUTO) 0.7 K/uL (0.1-1.30); MONOCYTES % (AUTO) 7.5 % (2.0-12.0); NEUTROPHILS # (AUTO) 5.9 K/uL (1.8-8.9); NEUTROPHILS % (AUTO) 61.1 % (43.0-81.0); PLATELET COUNT (AUTO) 334 K/uL (150-450); RED BLOOD CELL COUNT(AUTO) 4.81 MIL/uL (4.0-5.2); WHITE BLOOD COUNT (AUTO) 9.6 K/uL (4.3-11.0)
[2022-05-23 22:24] LABS: CALCIUM, SERUM 9.2 mg/dL (8.5-10.1); CARBON DIOXIDE 31 mmol/L (21-32); CHLORIDE 103 mmol/L (98-107); CREATININE 0.9 mg/dL (0.6-1.3); GLUCOSE 74 mg/dL (74-106); POTASSIUM 4.1 mmol/L (3.5-5.1); SODIUM SERUM 139 mmol/L (136-145); UREA NITROGEN, BLOOD 16 mg/dL (7-18)
[2022-05-23 22:29] LABS: ALANINE AMINOTRANSFERASE 17 U/L (12-78); ALBUMIN 3.8 g/dL (3.4-5.0); ALKALINE PHOSPHATASE 110 U/L (46-116); ASPARTATE AMINOTRANSFERASE 17 U/L (15-37); BILIRUBIN,DIRECT 0.1 mg/dL (0.0-0.2); BILIRUBIN,TOTAL 0.4 mg/dL (0.2-1.0); TOTAL PROTEIN, SERUM 8.2 g/dL (6.4-8.2)
[2022-05-23 22:36] LABS: ACETAMINOPHEN 0 ug/ml (10-30); ALCOHOL, BLOOD < 3 mg/dL (0-0)
[2022-05-24] MEDS ORDERED: ACETAMINOPHEN 325 MG TABLET ONE (01:35)
[2022-05-24] MEDS ORDERED: ACETAMINOPHEN 325 MG TABLET PO ONE (02:00)
== END 2022-05-24 05:12 | disposition left against medical advice (07) ==
LOC: ER 21:07
DX: F32.A Depression, unspecified (principal); F22 Delusional disorders; J45.909 Unspecified asthma, uncomplicated; G89.4 Chronic pain syndrome; F11.20 Opioid dependence, uncomplicated; Z90.49 Acquired absence of other specified parts of digestive tract; Z88.5 Allergy status to narcotic agent; Z88.8 Allergy status to other drugs, medicaments and biological substances; F41.9 Anxiety disorder, unspecified; Z20.822 Contact with and (suspected) exposure to COVID-19
CPT/HCPCS: 36415; 80048-TC; 80076-TC; 85025-TC; C9803; G0480

== ENCOUNTER 2022-05-28 18:35 | Emergency (ER) | payer MEDICARE, OTHER ==
[~2022-05-28] VITALS: Ht 162.6 cm; Wt 68.0 kg
--- NOTE | 2022-05-28 18:40 | NUR ---
RECEVED PT 61 CAME BY DAYA C/O WEEKNEE AND DIZZNESS
[2022-05-28] MEDS: IV NS 0.9% 1,000 ML BAG IV ONE (19:30)
[2022-05-28] MEDS ORDERED: LORAZEPAM 0.5 MG TABLET ONE ×2 (19:35→21:42)
[2022-05-28] MEDS: LORAZEPAM 1 MG TABLET PO ONE ×2 (19:38→21:46)
--- NOTE | 2022-05-28 19:40 | NUR ---
[id number] C/O DIZZINESS 1HR AGO WHILE WALKING. PT AWAKE AND ALERT X4 BREATHING EVEN AND UNLABORED. PLACED ON MONITOR AND V/S WNL.
--- NOTE | 2022-05-28 19:45 | NUR ---
ACCU CHECKED 148 MG/LD DR. LAMAR NOTEFED
--- NOTE | 2022-05-28 19:49 | NUR ---
AERIAL PHOTOGRAPHER AT PT'S BEDSIDE
[2022-05-28 20:03] LABS: BASOPHILS # (AUTO) 0.1 K/uL (0.0-0.2); BASOPHILS % (AUTO) 0.7 % (0.0-2.0); EOSINOPHILS % (AUTO) 0.9 % (0.0-6.0); HEMATOCRIT 39 % (33-45); HEMOGLOBIN 12.5 g/dL (11.5-14.8); LYMPHOCYTES # (AUTO) 2.1 K/uL (0.8-4.8); LYMPHOCYTES % (AUTO) 24.8 % (20.0-44.0); MEAN CORPUSCULAR HGB CONC 32 g/dl (31.0-36.0); MEAN CORPUSCULAR VOLUME 82 fL (82-100); MONOCYTES # (AUTO) 0.5 K/uL (0.1-1.30); MONOCYTES % (AUTO) 5.8 % (2.0-12.0); NEUTROPHILS # (AUTO) 5.8 K/uL (1.8-8.9); NEUTROPHILS % (AUTO) 67.8 % (43.0-81.0); PLATELET COUNT (AUTO) 330 K/uL (150-450); RED BLOOD CELL COUNT(AUTO) 4.77 MIL/uL (4.0-5.2); WHITE BLOOD COUNT (AUTO) 8.6 K/uL (4.3-11.0)
[2022-05-28 20:17] LABS: ALCOHOL, BLOOD < 3 mg/dL (0-0); CALCIUM, SERUM 8.9 mg/dL (8.5-10.1); CARBON DIOXIDE 30 mmol/L (21-32); CHLORIDE 103 mmol/L (98-107); CREATININE 0.7 mg/dL (0.6-1.3); GLUCOSE 127 mg/dL (74-106); POTASSIUM 3.6 mmol/L (3.5-5.1); SODIUM SERUM 140 mmol/L (136-145); UREA NITROGEN, BLOOD 22 mg/dL (7-18)
[2022-05-28 20:20] LABS: ACETAMINOPHEN 0 ug/ml (10-30)
--- NOTE | 2022-05-28 21:47 | NUR ---
Written and verbal after care instructions given. Patient verbalizes understanding of instruction. Awaiting pickup from ETA 10 minutes
[2022-05-28 22:07] VITALS: BP 122/73
== END 2022-05-28 21:50 | disposition home or self-care (01) ==
LOC: ER 18:37
DX: F41.9 Anxiety disorder, unspecified (principal); G89.4 Chronic pain syndrome; J45.909 Unspecified asthma, uncomplicated; Z90.49 Acquired absence of other specified parts of digestive tract; Z90.89 Acquired absence of other organs; Z88.8 Allergy status to other drugs, medicaments and biological substances; Z79.899 Other long term (current) drug therapy
CPT/HCPCS: 36415; 71045-TC; 80048-TC; 85025-TC; G0480; J7030

== ENCOUNTER 2022-06-27 01:47 | Emergency (ER) | payer MEDICARE, OTHER ==
[~2022-06-27] VITALS: Ht 160 cm; Wt 65.8 kg
[~2022-06-27 01:47] MED LIST changes: +LORAZEPAM 1 MG TABLET ONE; +LORAZEPAM 1 MG TABLET PO ONE
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
[2022-06-27 02:46] VITALS: BP 128/76
--- NOTE | 2022-06-27 02:46 | NUR ---
Patient discharged to home in stable condition. Written and verbal after care instructions given. Patient verbalizes understanding of instruction.
== END 2022-06-27 03:17 | disposition home or self-care (01) ==
LOC: ER 01:52
DX: F41.9 Anxiety disorder, unspecified (principal); J45.909 Unspecified asthma, uncomplicated; G89.4 Chronic pain syndrome; Z90.49 Acquired absence of other specified parts of digestive tract; Z90.89 Acquired absence of other organs; Z88.8 Allergy status to other drugs, medicaments and biological substances; Z79.899 Other long term (current) drug therapy

== ENCOUNTER 2022-07-23 11:29 | Emergency (ER) | payer MEDICARE, OTHER ==
[~2022-07-23] VITALS: Ht 162.6 cm; Wt 72.6 kg
[~2022-07-23 11:29] MED LIST changes: -LORAZEPAM 1 MG TABLET ONE; -LORAZEPAM 1 MG TABLET PO ONE
--- NOTE | 2022-07-23 11:45 | NUR ---
RECEIVED PT 61 YRS FEMALE CAME FROM HOME C/O FLU LIKE SYMPTOME FOR 2 DAYS AND HEADACK AND GENRALIZED BODY PAIN
--- NOTE | 2022-07-23 12:00 | NUR ---
SEEN BY DR. OSORIO
[2022-07-23] MEDS ORDERED: GUAIFENESIN/D-METHORPHAN HB 5 ML UDC ONE (12:29)
[2022-07-23] MEDS ORDERED: KETOROLAC TROMETHAMINE INJ 30 MG/ML VIAL ONE (12:29)
[2022-07-23] MEDS: KETOROLAC TROMETHAMINE INJ 60 MG/2 ML VIAL IM ONE (12:39)
[2022-07-23] MEDS: GUAIFENESIN/D-METHORPHAN HB 5 ML UDC PO ONE (12:39)
--- NOTE | 2022-07-23 12:41 | NUR ---
SCARLET AND TONY SOMERS SENT TO LAB
[2022-07-23] MEDS ORDERED: CYCL5TAB PO (14:22)
[2022-07-23] MEDS ORDERED: BENZ-13 PO (14:22)
[2022-07-23] MEDS ORDERED: GUAI1TBM19 PO (14:22)
[2022-07-23] MEDS ORDERED: KETO10TA2 PO (14:22)
[2022-07-23] MEDS ORDERED: Paxlovid PO (14:22)
[2022-07-23 15:13] VITALS: BP 102/66
== END 2022-07-23 15:13 | disposition home or self-care (01) ==
LOC: ER 11:45
DX: U07.1 COVID-19 (principal); J06.9 Acute upper respiratory infection, unspecified; G89.4 Chronic pain syndrome; F11.20 Opioid dependence, uncomplicated; Z88.6 Allergy status to analgesic agent; Z88.8 Allergy status to other drugs, medicaments and biological substances; J45.909 Unspecified asthma, uncomplicated
CPT/HCPCS: 99285; 71045; 87426; 96372; 87804; J1885; C9803

== ENCOUNTER 2024-11-07 21:06 | Emergency (ER) | payer MEDICARE, OTHER ==
[~2024-11-07] VITALS: Ht 160 cm; Wt 72.6 kg
[~2024-11-07 21:06] MED LIST changes: -ALPR1TAB7 PO; -ARIP10TA9 PO; -ARIP15TA3 PO; +CEPH-570 PO; -CEPH500C2 PO; -FLUO20CA36 PO; +IBUP-1955 PO; -PRED50TA PO; -oxyCODONE HCL SR 10MG PO
[2024-11-07 22:16] VITALS: TEMP 98.5
[2024-11-07] MEDS ORDERED: AMOXICILLIN TRIHYDRATE 250 MG CAPSULE ONE (22:30)
[2024-11-07] MEDS ORDERED: IBUPROFEN 600 MG TABLET ONE (22:31)
[2024-11-07] MEDS: AMOXICILLIN TRIHYDRATE 500 MG CAPSULE PO ONE (22:35)
[2024-11-07] MEDS: IBUPROFEN 600 MG TABLET PO ONE (22:35)
[2024-11-07 22:50] LABS: BASOPHILS # (AUTO) 0.1 K/uL (0.0-0.2); BASOPHILS % (AUTO) 0.6 % (0.0-2.0); EOSINOPHILS # (AUTO) 0.2 K/uL (0.0-0.7); EOSINOPHILS % (AUTO) 1.8 % (0.0-6.0); HEMATOCRIT 32 % (33-45); HEMOGLOBIN 10.8 g/dL (11.5-14.8); LYMPHOCYTES # (AUTO) 2.1 K/uL (0.8-4.8); LYMPHOCYTES % (AUTO) 19.2 % (20.0-44.0); MEAN CORPUSCULAR HEMOGLOBIN 27 PG (26.0-33.0); MEAN CORPUSCULAR HGB CONC 34 g/dl (31.0-36.0); MEAN CORPUSCULAR VOLUME 82 fL (82-100); MONOCYTES # (AUTO) 0.7 K/uL (0.1-1.30); MONOCYTES % (AUTO) 6.3 % (2.0-12.0); NEUTROPHILS # (AUTO) 7.8 K/uL (1.8-8.9); NEUTROPHILS % (AUTO) 72.1 % (43.0-81.0); PLATELET COUNT (AUTO) 316 K/uL (150-450); RED BLOOD CELL COUNT(AUTO) 3.95 MIL/uL (4.0-5.2); RED CELL DISTRIBUTION WIDTH 13.1 % (11.5-15.0); WHITE BLOOD COUNT (AUTO) 10.8 K/uL (4.3-11.0)
[2024-11-07 23:06] LABS: CALCIUM, SERUM 9.1 mg/dL (8.5-10.1); CARBON DIOXIDE 24 mmol/L (21-32); CHLORIDE 103 mmol/L (98-107); GLUCOSE 108 mg/dL (74-106); SODIUM SERUM 139 mmol/L (136-145); UREA NITROGEN, BLOOD 21 mg/dL (7-18)
[2024-11-07 23:12] LABS: ALANINE AMINOTRANSFERASE 19 U/L (12-78); ALBUMIN 3.4 g/dL (3.4-5.0); ALKALINE PHOSPHATASE 131 U/L (46-116); ASPARTATE AMINOTRANSFERASE 19 U/L (15-37); BILIRUBIN,DIRECT 0.1 mg/dL (0.0-0.2); BILIRUBIN,TOTAL 0.4 mg/dL (0.2-1.0); TOTAL PROTEIN, SERUM 7.3 g/dL (6.4-8.2)
[2024-11-07] MEDS: POTASSIUM CHLORIDE 20 MEQ POWDER PACKET PO ONE (23:30)
[2024-11-07 23:37] LABS: ACETAMINOPHEN <10 ug/ml (10-30); ALCOHOL, BLOOD < 3 mg/dL (0-10); SALICYLATE 0.4 mg/dL (2.8-20.0)
[2024-11-08 02:27] LABS: APPEARANCE,URINE CLEAR (CLEAR); BILIRUBIN,URINE NEGATIVE (NEGATIVE); BLOOD, URINE 2+ Ery/uL (NEGATIVE); COLOR,URINE YELLOW (YELLOW); KETONES,URINE NEGATIVE (NEGATIVE); LEUKOCYTE ESTERASE ,URINE 2+ (NEGATIVE); NITRITE, URINE NEGATIVE (NEGATIVE); PROTEIN,URINE NEGATIVE (NEGATIVE); UGLUCOSE NEGATIVE (NEGATIVE); UROBILINOGEN,URINE 0.2 EU/dL (0.2)
[2024-11-08 02:33] LABS: PREGNANCY TEST URINE QUAL NEGATIVE (NEGATIVE)
[2024-11-08 02:46] LABS: BARBITURATE, URINE NEGATIVE (NEGATIVE); BENZODIAZEPINE, URINE NEGATIVE (NEGATIVE); CANNABINOID, URINE NEGATIVE (NEGATIVE); COCCAINE, URINE NEGATIVE (NEGATIVE); PHENCYCLIDINE SCREEN,URINE NEGATIVE (NEGATIVE)
[2024-11-08 03:06] LABS: AMPHETAMINE, URINE POSITIVE (NEGATIVE); OPIATE, URINE POSITIVE (NEGATIVE)
[2024-11-08 03:39] LABS: ADD URINE CULTURE YES; BACTERIA,URINE Few /HPF (None Seen); MUCUS,URINE Rare /LPF (None Seen); RBC,URINE 0-2 /HPF (0-2); SQUAMOUS EPITHELIAL CELL,UR Rare /HPF (None Seen); YEAST,URINE Many /HPF (None Seen)
[2024-11-08 04:56] VITALS: BP 122/62; O2SAT 98
== END 2024-11-08 05:07 ==
LOC: ER 21:11
DX: R45.851 Suicidal ideations (principal); G89.4 Chronic pain syndrome; J45.909 Unspecified asthma, uncomplicated; K08.89 Other specified disorders of teeth and supporting structures; Z88.5 Allergy status to narcotic agent; Z90.49 Acquired absence of other specified parts of digestive tract; Z90.89 Acquired absence of other organs; Z20.822 Contact with and (suspected) exposure to COVID-19
CPT/HCPCS: 36415; 80048-TC; 80076-TC; 81001; 84703-TC; 85025-TC; G0480